=== PATIENT | female | born 1970 | race African-American/Black ===

== ENCOUNTER 2016-12-13 09:26 | Emergency (ER) | payer BC ==
[2016-12-13 10:38] LABS: Hematocrit 40 % (35-47); Hemoglobin 13.2 g/dl (12.0-16.0); Mean Corpuscular HGB Conc 33 g/dl (31-36); Mean Corpuscular Hemoglobin 28 pg (27-31); Mean Corpuscular Volume 86 fL (80-97); Mean Platelet Volume 8 um3 (7.4-10.4); Red Blood Count 4.69 10^6/ul (4.0-5.4); Red Cell Distribution Width 14 % (10.5-15); White Blood Count 6.7 10^3/ul (3.5-10.8)
[2016-12-13 11:09] LABS: ALT 15 U/L (7-52); AST 11 U/L (13-39); Albumin 3.9 g/dL (3.2-5.2); Alkaline Phosphatase 84 U/L (34-104); Anion Gap 6 mmol/L (2-11); BUN/Creatinine Ratio 14.7 (8-20); Blood Urea Nitrogen 11 mg/dL (6-24); CO2 Carbon Dioxide 29 mmol/L (22-32); Calcium 9.9 mg/dL (8.6-10.3); Chloride 100 mmol/L (101-111); Creatine Kinase 56 U/L (10-223); EGFR Non-African American 83.9 (>60); Globulin 3.2 g/dL (2-4); Glucose 117 mg/dL (70-100); Potassium 3.9 mmol/L (3.5-5.0); Sodium 135 mmol/L (133-145); Total Protein 7.1 g/dL (6.4-8.9)
[2016-12-13 12:27] LABS: Urine Bilirubin Negative (Negative); Urine Glucose Negative (Negative); Urine Nitrite Negative (Negative)
[2016-12-13 13:15] VITALS: BP 117/46
--- NOTE | 2016-12-13 17:43 | ED ---
Dizziness - HPI Summary HPI Summary: Patient arrives to ED with CC of HTN and feeling dizzy for 2-3 days. She states when she takes her BP at home, it is elevated to 200/100 and she begins to feel dizzy. She comes in today because her BP was 180/110 and she began to feel dizzy with nausea. She has had this before, but usually will go away after a few minutes, and is not related to BP. She has been worked up for BP issues before, but never has high BP readings in the office, so her PCP does not place her on a medication. Otherwise healthy and denies other problems at this time. At arrival to ED, her nausea had dissipated. Patient is also C/O insomnia which she has tried trazodone. - History Of Current Complaint Chief Complaint: EDDizziness Stated Complaint: DIZZY/HIGH BP Time Seen by Provider: 12/13/16 09:40 Hx Obtained From: Patient Onset/Duration: Resolved Timing: Minutes Severity Initially: Moderate Severity Currently: Moderate Character: Lightheaded, Dizzy Aggravating Factor(s): Headache Alleviating Factor(s): Rest Associated Signs And Symptoms: Positive: Nausea Related History: Similar Episode/Dx as - previous HTN - Risk Factors CVA Risk Factor: Negative - Allergies/Home Medications Allergies/Adverse Reactions: Allergies Allergy/AdvReac Type Severity Reaction Status Date / Time Acetaminophen [From Percocet] Allergy Severe Difficulty Verified 03/05/15 05:38 Breathing Hydrocodone [From Vicodin] Allergy Severe Difficulty Verified 03/05/15 05:52 Breathing Oxycodone [From Percocet] Allergy Severe Difficulty Verified 03/05/15 05:38 Breathing Sertraline [From Zoloft] Allergy Severe Rash Verified 05/04/13 14:52 PMH/Surg Hx/FS Hx/Imm Hx Previously Healthy: Yes Endocrine/Hematology History: Denies: Hx Diabetes Cardiovascular History: Denies: Hx Congestive Heart Failure History: Denies: Hx Renal Disease Musculoskeletal History: Denies: Hx Rheumatoid Arthritis, Hx Osteoporosis - Cancer History Hx Chemotherapy: No Hx Radiation Therapy: No - Surgical History Surgery Procedure, Year, and Place: C SECTION. KNEE SURGERY Infectious Disease History: No Infectious Disease History: Denies: Traveled Outside the [place] in Last 30 Days - Family History Known Family History: Positive: Cardiac Disease - cardiac myopathy, CT, CHF ( mother, grandmother) - Social History Occupation: Employed Full-time Lives: With Family Alcohol Use: Rare Hx Substance Use: Yes Substance Use Type: Reports: Prescribed Substance Use Comment - Amount & Last Used: Trazadone Hx Tobacco Use: No Smoking Status (MU): Never Smoked Tobacco Review of Systems Constitutional: Negative Eyes: Negative Cardiovascular: Negative Respiratory: Negative Positive: no symptoms reported, see HPI Musculoskeletal: Negative Neurological: Other - dizziness Positive: Headache, Weakness Psychological: Normal All Other Systems Reviewed And Are Negative: Yes Physical Exam Triage Information Reviewed: Yes Vital Signs On Initial Exam: Initial Vitals Temp Pulse Resp BP Pulse Ox 98.4 F 89 18 129/85 100 12/13/16 09:28 12/13/16 09:28 12/13/16 09:28 12/13/16 09:28 12/13/16 09:28 Vital Signs Reviewed: Yes Appearance: Positive: Well-Appearing, Well-Nourished Skin: Positive: Warm, Skin Color Reflects Adequate Perfusion Head/Face: Positive: Normal Head/Face Inspection Eyes: Positive: SALAZAR, Conjunctiva Clear Neck: Positive: Supple, Nontender Respiratory/Lung Sounds: Positive: Clear to Auscultation, Breath Sounds Present Cardiovascular: Positive: Normal, RRR, Pulses are Symmetrical in both Upper and Lower Extremities Musculoskeletal: Positive: Normal, Strength/ROM Intact Neurological: Positive: Normal, Sensory/Motor Intact, Alert, Oriented to Person Place, Time, Speech Normal Psychiatric: Positive: Normal AVPU Assessment: Alert - [place] Coma Scale Coma Scale Total: 15 Diagnostics - Vital Signs Vital Signs Temp Pulse Resp BP Pulse Ox 12/13/16 13:15 97.7 F 78 16 117/46 12/13/16 12:54 82 117/46 98 12/13/16 12:30 78 108/61 98 12/13/16 12:08 81 96 12/13/16 12:06 131/70 12/13/16 11:30 71 20 110/60 95 12/13/16 11:00 70 23 100/58 96 12/13/16 10:47 81 131/66 12/13/16 10:43 75 20 131/66 96 12/13/16 10:42 73 22 110/50 94 12/13/16 10:30 76 18 114/65 97 12/13/16 10:00 83 119/55 96 12/13/16 09:55 82 92 12/13/16 09:52 133/61 12/13/16 09:28 98.4 F 89 18 129/85 100 - Laboratory Lab Results: Lab Results 12/13/16 12/13/16 12/13/16 Range/Units 10:17 10:17 10:17 WBC 6.7 (3.5-10.8) 10^3/ul RBC 4.69 (4.0-5.4) 10^6/ul Hgb 13.2 (12.0-16.0) g/dl Hct 40 (35-47) % MCV 86 (80-97) fL MCH 28 (27-31) pg MCHC 33 (31-36) g/dl RDW 14 (10.5-15) % Plt Count 287 (150-450) 10^3/ul MPV 8 (7.4-10.4) um3 Neut % (Auto) 61.9 (38-83) % Lymph % (Auto) 29.4 (25-47) % [place] % (Auto) 6.5 (1-9) % Eos % (Auto) 2.0 (0-6) % Baso % (Auto) 0.2 (0-2) % Absolute Neuts (auto) 4.2 (1.5-7.7) 10^3/ul Absolute Lymphs (auto) 2.0 (1.0-4.8) 10^3/ul Absolute Monos (auto) 0.4 (0-0.8) 10^3/ul Absolute Eos (auto) 0.1 (0-0.6) 10^3/ul Absolute Basos (auto) 0 (0-0.2) 10^3/ul Absolute Nucleated RBC 0.01 10^3/ul Nucleated RBC % 0.2 INR (Anticoag Therapy) (0.89-1.11) APTT (26.0-36.3) seconds Sodium 135 (133-145) mmol/L Potassium 3.9 (3.5-5.0) mmol/L Chloride 100 L (101-111) mmol/L Carbon Dioxide 29 (22-32) mmol/L Anion Gap 6 (2-11) mmol/L BUN 11 (6-24) mg/dL Creatinine 0.75 (0.51-0.95) mg/dL Est GFR ( Amer) 108.0 (>60) Est GFR (Non-Af Amer) 83.9 (>60) BUN/Creatinine Ratio 14.7 (8-20) Glucose 117 H (70-100) mg/dL Lactic Acid 1.0 (0.5-2.0) mmol/L Calcium 9.9 (8.6-10.3) mg/dL Total Bilirubin 0.20 (0.2-1.0) mg/dL AST 11 L (13-39) U/L ALT 15 (7-52) U/L Alkaline Phosphatase 84 (34-104) U/L Total Creatine Kinase 56 (10-223) U/L Troponin I 0.00 (<0.04) ng/mL B-Natriuretic Peptide ( - 100) pg/mL Total Protein 7.1 (6.4-8.9) g/dL Albumin 3.9 (3.2-5.2) g/dL Globulin 3.2 (2-4) g/dL Albumin/Globulin Ratio 1.2 (1-3) TSH 1.90 (0.34-5.60) mcIU/mL Beta HCG, Quant < 0.60 mIU/mL Urine Color Urine Appearance Urine pH (5-9) Ur Specific [place] (1.010-1.030) Urine Protein (Negative) Urine Ketones (Negative) Urine Blood (Negative) Urine Nitrate (Negative) Urine Bilirubin (Negative) Urine Urobilinogen (Negative) Ur Leukocyte Esterase (Negative) Urine Glucose (Negative) 12/13/16 12/13/16 12/13/16 Range/Units 10:17 10:17 12:06 WBC (3.5-10.8) 10^3/ul RBC (4.0-5.4) 10^6/ul Hgb (12.0-16.0) g/dl Hct (35-47) % MCV (80-97) fL MCH (27-31) pg MCHC (31-36) g/dl RDW (10.5-15) % Plt Count (150-450) 10^3/ul MPV (7.4-10.4) um3 Neut % (Auto) (38-83) % Lymph % (Auto) (25-47) % [place] % (Auto) (1-9) % Eos % (Auto) (0-6) % Baso % (Auto) (0-2) % Absolute Neuts (auto) (1.5-7.7) 10^3/ul Absolute Lymphs (auto) (1.0-4.8) 10^3/ul Absolute Monos (auto) (0-0.8) 10^3/ul Absolute Eos (auto) (0-0.6) 10^3/ul Absolute Basos (auto) (0-0.2) 10^3/ul Absolute Nucleated RBC 10^3/ul Nucleated RBC % INR (Anticoag Therapy) 0.95 (0.89-1.11) APTT 34.1 (26.0-36.3) seconds Sodium (133-145) mmol/L Potassium (3.5-5.0) mmol/L Chloride (101-111) mmol/L Carbon Dioxide (22-32) mmol/L Anion Gap (2-11) mmol/L BUN (6-24) mg/dL Creatinine (0.51-0.95) mg/dL Est GFR ( Amer) (>60) Est GFR (Non-Af Amer) (>60) BUN/Creatinine Ratio (8-20) Glucose (70-100) mg/dL Lactic Acid (0.5-2.0) mmol/L Calcium (8.6-10.3) mg/dL Total Bilirubin (0.2-1.0) mg/dL AST (13-39) U/L ALT (7-52) U/L Alkaline Phosphatase (34-104) U/L Total Creatine Kinase (10-223) U/L Troponin I (<0.04) ng/mL B-Natriuretic Peptide 20 ( - 100) pg/mL Total Protein (6.4-8.9) g/dL Albumin (3.2-5.2) g/dL Globulin (2-4) g/dL Albumin/Globulin Ratio (1-3) TSH (0.34-5.60) mcIU/mL Beta HCG, Quant mIU/mL Urine Color Yellow Urine Appearance Clear Urine pH 5.0 (5-9) Ur Specific [place] 1.016 (1.010-1.030) Urine Protein Negative (Negative) Urine Ketones Negative (Negative) Urine Blood Negative (Negative) Urine Nitrate Negative (Negative) Urine Bilirubin Negative (Negative) Urine Urobilinogen Negative (Negative) Ur Leukocyte Esterase Negative (Negative) Urine Glucose Negative (Negative) Result Diagrams: 12/13/16 10:17 12/13/16 10:17 Lab Statement: Any lab studies that have been ordered have been reviewed, and results considered in the medical decision making process. Dizzy Course/Dx - Course Course Of Treatment: BP on arrival 136/82 and retook at 121/68. Labs WNL, UA WNL. Patients symptoms dissipated on arrival. Encouraged patient to seek cardiology follow up d/t high BP and check BP cuff for different size. Encouraged follow up with PCP as well. - Diagnoses Differential Diagnosis/HQI/PQRI: Coronary Artery Disease, CVA, Other Provider Diagnoses: Dizziness, Hypertension Discharge - Discharge Plan Condition: Stable Disposition: HOME Prescriptions: Meclizine TAB* [Antivert 12.5 TAB*] 25 mg PO TID #20 tab MDD 3 Ondansetron ODT TAB* [Zofran 4 MG Odt TAB*] 4 mg PO Q6H PRN #20 tab.odt MDD 4 PRN Reason: Nausea Patient Education Materials: Hypertension (ED), Dizziness (ED) Referrals: Shekhar Stearns MD [Medical Doctor] - Dennis Malagon MD [Primary Care Provider] - Additional Instructions: Follow up with PCP and cardiology. Call today for appt. Will not start your on any medication for today. If you develop these symptoms again or have any visual changes, please check your blood pressure and return if BP is elevated 200/100. Please seen ophthalmology as well.
== END 2016-12-13 13:15 | disposition home or self-care (01) ==
LOC: ED 09:26
DX: I10 Essential (primary) hypertension (principal); R51 Headache; R42 Dizziness and giddiness
CPT/HCPCS: 36415; 80053; 81003; 82550; 83605; 83880; 84443; 84484; 84702; 85025; 85610; 85730; 96372; 99282

== ENCOUNTER 2018-05-02 15:40 | Observation (INO) | payer BC ==
[2018-05-02] MEDS ORDERED: Aspirin 81 mg CHEW TAB* 81 MG TAB.CHEW PO ONE (16:26)
[2018-05-02] MEDS ORDERED: Nitroglycerin TAB 0.4 MG* 0.4 MG TAB SL ONE (16:26)
--- NOTE | 2018-05-02 16:33 | ED ---
HPI Chest Pain - HPI Summary HPI Summary: This is Ara nguyen, documenting for attending Corey San MD. 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 Prior to onset of chest pain she felt lightheaded nauseous, diaphoretic, OGDEN, and had a headache. States chest pain is currently improved, but still feels like pressure. Report recent ankle swelling. Denies chest pain with deep breath, cough, and fever. Denies oral contraceptive use. Reports long car trip roughly two weeks ago. FMHx significant for CHF in her mother dx at age 45 with from [place] at age 58; her grandmother had cardiomyopathy at age 56. I, Dr. San personally performed the services described in this documentation as scribed in my presence and it is both accurate and complete. - History of Current Complaint Chief Complaint: EDChestPainROMI Time Seen by Provider: 05/02/18 16:14 Hx Obtained From: Patient Hx Last Menstrual Period: 04/12/13 Onset/Duration: Started Hours Ago Initial Severity: Moderate Current Severity: Mild Pain Intensity: 4 Pain Scale Used: 0-10 Numeric Chest Pain Location: Left Anterior Chest Pain Radiates: Yes Chest Pain Radiates To:: Back Character: Pressure/Squeezing Aggravating Factor(s): Nothing Alleviating Factor(s): Nothing Associated Signs and Symptoms: Positive: Chest Pain, Headaches, Shortness of Breath, Swelling, Diaphoresis, Nausea - Allergy/Home Medications Allergies/Adverse Reactions: Allergies Allergy/AdvReac Type Severity Reaction Status Date / Time acetaminophen [From Percocet] Allergy Severe Difficulty Verified 05/02/18 15:56 Breathing hydrocodone [From Vicodin] Allergy Severe Difficulty Verified 05/02/18 15:56 Breathing oxycodone [From Percocet] Allergy Severe Difficulty Verified 05/02/18 15:56 Breathing sertraline Allergy Severe Rash Verified 05/02/18 15:56 Home Medications: Home Medications Fluticasone NASAL SPRAY 50MCG* [Flonase NASAL SPRAY 50MCG*] 2 spray BOTH NARES DAILY 05/02/18 [History Confirmed 05/02/18] Multivitamins/Minerals TAB* [Theragran/minerals TAB*] 1 tab PO DAILY 05/02/18 [ History Confirmed 05/02/18] PMH/Surg Hx/FS Hx/Imm Hx Endocrine/Hematology History: Denies: Hx Diabetes Cardiovascular History: Denies: Hx Congestive Heart Failure History: Denies: Hx Renal Disease Musculoskeletal History: Denies: Hx Rheumatoid Arthritis, Hx Osteoporosis - Cancer History Hx Chemotherapy: No Hx Radiation Therapy: No - Surgical History Surgery Procedure, Year, and Place: C SECTION. KNEE SURGERY Infectious Disease History: No Infectious Disease History: Denies: Traveled Outside the [place] in Last 30 Days - Family History Known Family History: Positive: Cardiac Disease - cardiac myopathy, [place], CHF ( mother, grandmother) - Social History Alcohol Use: Rare Alcohol Amount: 1 month Hx Substance Use: Yes Substance Use Type: Reports: None Substance Use Comment - Amount & Last Used: Trazadone Hx Tobacco Use: No Smoking Status (MU): Never Smoked Tobacco Have You Smoked in the Last Year: No Review of Systems Positive: Skin Diaphoresis, Other - lightheaded. Negative: Fever, Chills Negative: Erythema Negative: Sore Throat Positive: Chest Pain Positive: Shortness Of Breath - OGDEN. Negative: Cough Positive: Nausea. Negative: Abdominal Pain, Vomiting, Diarrhea Negative: dysuria, hematuria Positive: Myalgia - back pain, Edema Positive: Headache All Other Systems Reviewed And Are Negative: Yes Physical Exam - Summary Physical Exam Summary: Constitutional: Well-developed, Morbidly Obese, Alert. (-) Distressed Skin: Warm, Dry HENT: Normocephalic; Atraumatic Eyes: Conjunctiva normal Neck: Musculoskeletal ROM normal neck. (-) JVD, (-) Stridor, (-) Tracheal deviation Cardio: Rhythm regular, rate normal, Heart sounds normal; Intact distal pulses; The pedal pulses are 2+ and symmetric. Radial pulses are 2+ and symmetric. (-) Murmur Pulmonary/Chest wall: Effort normal. (-) Respiratory distress, (-) Wheezes, (-) Rales Abd: Soft, (-) epigastric tenderness, (-) Distension, (-) Guarding, (-) Rebound Musculoskeletal: (-) Edema Lymph: (-) Cervical adenopathy Neuro: Alert, Oriented x3 Psych: Mood and affect Normal Triage Information Reviewed: Yes Vital Signs On Initial Exam: Initial Vitals Temp Pulse Resp BP Pulse Ox 97.2 F 81 20 136/54 97 05/02/18 15:51 05/02/18 15:51 05/02/18 15:51 05/02/18 15:51 05/02/18 15:51 Vital Signs Reviewed: Yes Diagnostics - Vital Signs Vital Signs Temp Pulse Resp BP Pulse Ox 05/02/18 15:51 97.2 F 81 20 136/54 97 - Laboratory Result Diagrams: 05/02/18 16:38 05/02/18 16:38 Lab Statement: Any lab studies that have been ordered have been reviewed, and results considered in the medical decision making process. - Radiology CXR Radiology Interpretation Completed By: Radiologist - Limited exam due to morbid obesity without compelling evidence for an acute cardiopulmonary process. ED Physician has reviewed this report. - CT Chest/Thorax CT Interpretation Completed By: Radiologist - #. Negative for pulmonary embolism. #. Unremarkable thoracic aorta. #. Incidental solitary significantly enlarged LEFT axillary lymph node without significant change compared with the 2015 exam. Negative for additional thoracic lymphadenopathy. ED Physician has reviewed this report. 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 Prior to onset of chest pain she felt lightheaded nauseous, diaphoretic, OGDEN, and had a headache. States chest pain is currently improved, but still feels like pressure. Report recent ankle swelling. Denies chest pain with deep breath, cough, and fever. Denies oral contraceptive use. Reports long car trip roughly two weeks ago. FMHx significant for CHF in her mother dx at age 45 with from [place] at age 58; her grandmother had cardiomyopathy at age 56. Patient is given Nitroglycerin and ASA. CXR is limited due to morbid obesity, without significant cardiopumoary findings. A chest/thorax CT reveals:#. Negative for pulmonary embolism. #. Unremarkable thoracic aorta. #. Incidental solitary significantly enlarged LEFT axillary lymph node without significant. change compared with the 2015 exam. Negative for additional thoracic lymphadenopathy. Bloodwork is unremarkable. Patient will be admitted and is agreeable with this plan. - Diagnoses Provider Diagnoses: Chest pain, unspecified - Provider Notifications Discussed Care Of Patient With: Sheri Chaidez - hospitalist Instructed by Provider To: Admit As Inpatient Discharge - Sign-Out/Discharge Documenting (check all that apply): Patient Departure - Discharge Plan Disposition: ADMITTED TO [facility]
--- NOTE | 2018-05-02 16:43 | RAD ---
Indication: Chest pain. Back pain. Nausea. Comparison: April 25, 2016 Technique: Upright AP 1617 hours Report: Morbid obesity limits image quality. No gross pulmonary infiltrate, focal pulmonary lesion, pleural effusion, or pneumothorax evident. The heart, pulmonary vasculature, and mediastinal contours are unremarkable. No free air evident beneath the diaphragm. IMPRESSION: #. Limited exam due to morbid obesity without compelling evidence for an acute cardiopulmonary process.
[2018-05-02 16:50] LABS: ABS Basophils 0 10^3/ul (0-0.2); ABS Eosinophils 0.1 10^3/ul (0-0.6); ABS Lymphocytes 1.9 10^3/ul (1.0-4.8); ABS Monocytes 0.7 10^3/ul (0-0.8); ABS Neutrophils 6.5 10^3/ul (1.5-7.7); ABS Nucleated RBC 0 10^3/ul; Eosinophil % 1.1 % (0-6); Hematocrit 39 % (35-47); Hemoglobin 13.1 g/dl (12.0-16.0); Lymphocyte % 20.7 % (25-47); Mean Corpuscular HGB Conc 33 g/dl (31-36); Mean Corpuscular Hemoglobin 28 pg (27-31); Mean Corpuscular Volume 85 fL (80-97); Mean Platelet Volume 7.6 um3 (7.4-10.4); Nucleated Red Blood Cells % 0.1; Platelet Count 345 10^3/ul (150-450); Red Blood Count 4.64 10^6/ul (4.00-5.40); Red Cell Distribution Width 14 % (10.5-15); White Blood Count 9.2 10^3/ul (3.5-10.8)
[2018-05-02 17:09] LABS: EGFR Non-African American 81.1 (>60)
[2018-05-02] MEDS ORDERED: Iohexol 350* (CONTRAST) 500 ML MDV IV ONE (17:12)
[2018-05-02] MEDS ORDERED: Nitroglycerin 2% OINT* 1 GM PAK TOPICAL ONE (17:43)
--- NOTE | 2018-05-02 18:21 | RAD ---
INDICATION: Chest pain radiating into the back. Assess for pulmonary embolism. COMPARISON: Chest radiograph of the same date and March 05, 2015 CT. TECHNIQUE: Multidetector CT images were obtained from the lung apices to the upper abdomen with 88 mL Omnipaque 350 IV contrast. Pulmonary angiogram protocol. Multiplanar reformation including with maximum intensity projection. REPORT: Clear lungs. Negative for pleural effusion or pneumothorax. 2.1 cm short axis enlarged LEFT axillary lymph node without significant change compared with the 2015 exam. No additional enlarged thoracic lymph nodes evident. Negative for cardiomegaly, pericardial effusion. Normal diameter thoracic aorta. No evidence for aortic dissection. No filling defects are identified from the main to the subsegmental pulmonary arteries to indicate presence of a pulmonary embolism. Unremarkable images through the upper abdomen. Negative for splenomegaly. No lymphadenopathy evident at the visualized upper abdomen. IMPRESSION: #. Negative for pulmonary embolism. #. Unremarkable thoracic aorta. #. Incidental solitary significantly enlarged LEFT axillary lymph node without significant change compared with the 2015 exam. Negative for additional thoracic lymphadenopathy.
[2018-05-02] MEDS ORDERED: Ondansetron INJ* 2 MG/ML VIAL IV PRN (18:27)
[2018-05-02] MEDS ORDERED: Acetaminophen TAB* 325 MG PO PRN (18:27)
[2018-05-02] MEDS ORDERED: Cyclobenzaprine TAB* 10 MG PO PRN (18:30)
[2018-05-02] MEDS ORDERED: traZODone TAB* 100 MG PO PRN (18:30)
--- NOTE | 2018-05-02 21:44 | HP ---
CC: Dr. Malagon * HISTORY AND PHYSICAL: DATE OF ADMISSION: 05/02/18 PRIMARY CARE PROVIDER: Dr. Malagon. ATTENDING PHYSICIAN WHILE IN THE HOSPITAL: Sheri Chaidez DO * (report dictated by Pritesh Funk NP). CHIEF COMPLAINT: 1. Chest pain. 2. Lightheadedness. 3. Not feeling well. HISTORY OF PRESENT ILLNESS: Mrs. Barnes is a 47-year-old female patient who is morbidly obese; she has a history of rheumatoid arthritis; chronic pain; migraines; history of anxiety and depression; NIKIA, she is getting fitted for a mask; overactive bladder; and hypertension, although currently not on medication ; also history of palpitations in the past, she saw it systems manager about 15 years ago. She is coming into the ED today. She says that throughout the afternoon today, she just is not feeling well. She got home this morning from work, she works overnight. She tried lying down. She was feeling lightheaded and dizzy, feeling nauseous. She was able to lay down and then she got up to go get her son. Again when she got back from shopping and picking up her son, she felt nauseous, lightheaded, so a little just tired, felt like she was going to faint. She tried eating something, she got nauseous and vomited. She then started noting that she was having some pressure tightness in the left chest that went into her shoulder down her arm a little ways. She became short of breath. She just was feeling nauseated with this. She felt like she got sweaty. She says the pain was nonexertional. She has not experienced pain like this before. She denied any recent fevers, chills, nausea, vomiting. No recent trips or travel. No calf pain or leg pain or swelling. She said the pain was not reproducible, it was not sharp in nature, it was just a pressure. She called 911 to come into the hospital to be evaluated because she has a pretty extensive family history of heart disease. She came into the ED. She was evaluated for the chest pain. Because of this, we were asked to evaluate for admission. PAST MEDICAL HISTORY: Significant for: 1. GERD. 2. Migraines. 3. Depression. 4. Anxiety. 5. Chronic pain. 6. Rheumatoid arthritis. 7. NIKIA. 8. Overactive bladder. 9. Hypertension. PAST SURGICAL HISTORY: 1. The patient has had knee arthroscopy. 2. . MEDICATIONS: Home medications include: 1. Trazodone 100 mg at bedtime as needed. 2. Prevacid 30 mg p.o. daily. 3. Plaquenil 200 mg p.o. b.i.d. 4. VESIcare 10 mg p.o. daily. 5. Imitrex 100 mg p.o. b.i.d. as needed. 6. Naproxen 500 mg p.o. b.i.d. as needed. 7. Multivitamin 1 tablet p.o. daily. 8. Lopressor 25 mg p.o. t.i.d. as needed. 9. Claritin 10 mg p.o. daily. 10. Flonase 2 sprays both nares daily. 11. Prozac 20 mg daily. 12. Flexeril 10 mg p.o. b.i.d. as needed. ALLERGIES TO MEDICATIONS: Include NORCO, PERCOCET, and ZOLOFT. FAMILY HISTORY: Her mother had a history of SD at the age of 56, CHF at the age of 45. Father of aspiration. Her maternal grandmother had cardiomyopathy. SOCIAL HISTORY: She does not smoke, does not drink. Surrogate decision maker is her . REVIEW OF SYSTEMS: There is no documented fever. She denies having any significant weight change. There was no double vision. She denies having any ear discharge. There was no rhinorrhea. There was no sore throat. No thyroid enlargement. No orthopnea. There was chest pain per my HPI. There was no nocturnal dyspnea. No abdominal pain, no nausea, no vomiting. No dysuria, no frequency. No seizure, no loss of consciousness. No pruritus and no skin ulcerations. Review of 14 systems completed, all others negative. PHYSICAL EXAMINATION GENERAL: At this time, Mrs. Barnes is a 47-year-old female patient; she is morbidly obese. She is sitting in the ED stretcher. She does not appear to be in any acute distress. VITAL SIGNS: Blood pressure 136/54 with a pulse of 81, respirations 20, O2 sat 97%, temperature 97.2. HEENT: Head is atraumatic and normocephalic. Eyes: EOMs are intact. Sclerae are anicteric and not pale. Throat: Oral mucosa appears to be moist. No oropharyngeal erythema. NECK: Supple. LUNGS: Clear to auscultation bilaterally. No wheezes, rales, or rhonchi. HEART: Sounds S1, S2. Regular rate and rhythm. No murmurs, rubs, or gallops. ABDOMEN: Soft, flat, nontender. Bowel sounds were present. EXTREMITIES: Pulses were 2+ throughout. She had no peripheral edema. She had 5/5 strength. NEUROLOGICAL: She is awake. She is alert. She is oriented x3. Her tongue is midline. Compensation Programs Manager were equal. She had no gross focal neurological deficits. SKIN: Grossly intact. DIAGNOSTIC STUDIES/LAB DATA: Labs today are revealing a WBC of 9.2, RBC of 4.64, hemoglobin 13.1, hematocrit of 39, and platelet count of 345. Sodium was 136, potassium of 4.7, chloride of 104, bicarb 28, BUN 11, creatinine of 0.77, glucose 89, lactate 0.9, calcium 9.3. Total bili 0.3, AST 16, ALT 19, alk phos 90. Troponin 0. Albumin of 4.0. She did have a chest thorax CTA, which revealed negative for pulmonary embolism , unremarkable thoracic aorta. Incidental solitary significantly enlarged left axillary lymph node without significant change compared to 2015 exam, negative for additional thoracic lymphadenopathy. Chest x-ray obtained today showed limited exam due to morbid obesity without compelling evidence for acute cardiopulmonary process. EKG obtained today shows normal sinus rhythm, rate of 78, no ST elevations or T - wave inversions. It was reviewed with her previous EKG, it appears to be similar. Old medical records were reviewed. ASSESSMENT AND PLAN: Mrs. Barnes is a 47-year-old female patient coming into the emergency department today with complaints of chest pain. We were asked to evaluate for admission. She will be admitted under observation status for: 1. Chest pain. At this point, the patient does have risk factors since she has morbid obesity, untreated hypertension, and in addition to this, also has a family history. I will go ahead and cycle her troponin, check lipid panel, A1c , EKG in the morning, place her on telemetry and check a stress test in the morning. She may need a 2-day protocol. 2. Gastroesophageal reflux disease. Continue her Prevacid. 3. Migraines. Continue current medical regimen. P.r.n. Tylenol has been ordered. 4. Depression and anxiety. Continue supportive care. 5. Rheumatoid arthritis. Continue with her Plaquenil. 6. Chronic pain. Continue meds as described. 7. Obstructive sleep apnea. She can follow up with her PCP. 8. Overactive bladder. Continue her Detrol. 9. History of hypertension. She says her blood pressure has been high, but she has not been on medications. We will trend this while she is here and may consider starting an agent, but she can follow up with primary care physician. 10. Left axillary lymph node. Follow up with primary care physician. She may need to have a biopsy at some point, but she has had it for 3 years, this can be followed outpatient. 11. DVT prophylaxis. Continue with heparin subcu. 12. Code status. Full code. 13. Fluid, electrolytes, and nutrition. Heart-healthy diet. She will be n.p.o. after midnight. TIME SPENT: On the admission 60 minutes, greater than half the time was spent face- to-face with the patient obtaining my history and physical; other half time was spent going over the plan of care with the patient and implementing plan of care. I did discuss the plan of care with my attending, Dr. Chaidez, she is in agreement. PRITESH FUNK NP [id number]/[facility] #: [id number] LISA
[2018-05-02] MEDS: Heparin VIAL(*) 5000 UNITS/ML VIAL (FIVE THOUSAND) SUBCUT SCH (22:07)
[2018-05-02] MEDS: Hydroxychloroquine TAB* 200 MG PO SCH (22:08)
[2018-05-03] MEDS: Heparin VIAL(*) 5000 UNITS/ML VIAL (FIVE THOUSAND) SUBCUT SCH ×3 (05:35→21:25)
[2018-05-03 05:56] LABS: ABS Basophils 0 10^3/ul (0-0.2); ABS Eosinophils 0.2 10^3/ul (0-0.6); ABS Lymphocytes 1.5 10^3/ul (1.0-4.8); ABS Monocytes 0.5 10^3/ul (0-0.8); ABS Neutrophils 3.8 10^3/ul (1.5-7.7); ABS Nucleated RBC 0 10^3/ul; Eosinophil % 2.8 % (0-6); Hematocrit 36 % (35-47); Hemoglobin 12.2 g/dl (12.0-16.0); Lymphocyte % 25.3 % (25-47); Mean Corpuscular HGB Conc 33 g/dl (31-36); Mean Corpuscular Hemoglobin 28 pg (27-31); Mean Corpuscular Volume 84 fL (80-97); Mean Platelet Volume 7.6 um3 (7.4-10.4); Nucleated Red Blood Cells % 0.2; Platelet Count 301 10^3/ul (150-450); Red Blood Count 4.33 10^6/ul (4.00-5.40); Red Cell Distribution Width 15 % (10.5-15)
[2018-05-03 06:12] LABS: EGFR Non-African American 82.3 (>60)
[2018-05-03] MEDS: SOLIFENACIN 10 MG PO SCH (08:09)
[2018-05-03] MEDS: FLUoxetine CAP* 10 MG PO SCH (08:09)
[2018-05-03] MEDS: Multivitamins/Minerals TAB PO SCH (08:09)
[2018-05-03] MEDS: Omeprazole CAP* 20 MG PO SCH (08:09)
[2018-05-03] MEDS: Cetirizine* 10 MG TAB PO SCH (08:09)
[2018-05-03] MEDS: Aspirin 81 mg CHEW TAB* 81 MG TAB.CHEW PO SCH (08:09)
[2018-05-03] MEDS: Hydroxychloroquine TAB* 200 MG PO SCH ×2 (08:09→21:25)
--- NOTE | 2018-05-03 14:11 | PN ---
Subjective Date of Service: 05/03/18 Interval History: Patient reports no further CP since admission. She reports the stress test went well and she did not have any CP during exam. She states she feels that she is at her baseline. Offers no complaints at this time. 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 Objective Active Medications: Acetaminophen (Tylenol Tab*) 650 mg PO Q4H PRN PRN Reason: FEVER/PAIN Aspirin (Aspirin 81 Mg Chew Tab*) 81 mg PO DAILY [facility] Last Admin: 05/03/18 08:09 Dose: 81 mg Cetirizine HCl (Zyrtec*) 10 mg PO DAILY [facility] Last Admin: 05/03/18 08:09 Dose: 10 mg Cyclobenzaprine HCl (Flexeril Tab*) 10 mg PO BEDTIME PRN PRN Reason: SPASMS - MUSCLE Fluoxetine HCl (Prozac Cap*) 20 mg PO DAILY [facility] Last Admin: 05/03/18 08:09 Dose: 20 mg Heparin Sodium (Porcine) (Heparin Vial(*)) 5,000 units SUBCUT Q8HR [facility] Last Admin: 05/03/18 05:35 Dose: 5,000 units Hydroxychloroquine Sulfate (Plaquenil Tab*) 200 mg PO BID [facility] Last Admin: 05/03/18 08:09 Dose: 200 mg Multivitamins/Minerals (Theragran/Minerals Tab*) 1 tab PO DAILY [facility] Last Admin: 05/03/18 08:09 Dose: 1 tab Omeprazole (Prilosec Cap*) 20 mg PO DAILY@0730 [facility] Last Admin: 05/03/18 08:09 Dose: 20 mg Ondansetron HCl (Zofran Inj*) 4 mg IV Q6H PRN PRN Reason: NAUSEA Solifenacin (Vesicare(Nf)) 10 mg PO DAILY [facility] Last Admin: 05/03/18 08:09 Dose: Not Given Trazodone HCl (Desyrel Tab*) 100 mg PO BEDTIME PRN PRN Reason: INSOMNIA Last Admin: 05/02/18 22:08 Dose: 100 mg Vital Signs - 8 hr 05/03/18 07:35 Temperature 98.7 F Pulse Rate 86 Respiratory 20 Rate Blood Pressure 121/51 (mmHg) O2 Sat by Pulse 97 Oximetry Oxygen Devices in Use Now: None Appearance: A+O x3 47 yo obese female very pleasent in NAD Eyes: No Scleral Icterus, PERRLA Ears/Nose/Mouth/Throat: NL Teeth, Lips, Gums, Mucous Membranes Moist Respiratory: Symmetrical Chest Expansion and Respiratory Effort, Clear to Auscultation Cardiovascular: NL Sounds; No Murmurs; No JVD, RRR, No Edema Abdominal: NL Sounds; No Tenderness; No Distention Extremities: No Edema, No Clubbing, Cyanosis Skin: No Rash or Ulcers, No Nodules or Sclerosis Neurological: NL Sensation, NL Gait, NL Muscle Strength and Tone Lines/Tubes/Other Access: Clean, Dry and Intact Peripheral IV Nutrition: Taking PO's Result Diagrams: 05/03/18 05:37 05/03/18 05:37 Assess/Plan/Problems-Billing Assessment: 47 yo female with a PMH morbidly obesity, RA, chronic, migraines, hx of anxiety and depression, NIKIA, overactive bladder, HTN who presented with chest pain, lightheadedness admitted for chest pain - Patient Problems (1) Chest pain Comment: No further CP 3 flat troponins awaiting 2nd part of stress stest tomorrow. continue ASA 81 mg daily (2) Morbid obesity Comment: BMI 51 Lifestyle counseling 15 minutes (3) Depression Comment: continue prozac (4) Rheumatoid arthritis Comment: continue Plaquenil (5) NIKIA (obstructive sleep apnea) Comment: CPAP (6) Chronic pain Comment: APA, flexeril (7) DVT prophylaxis Comment: HSQ
[2018-05-04] MEDS: Heparin VIAL(*) 5000 UNITS/ML VIAL (FIVE THOUSAND) SUBCUT SCH (05:47)
[2018-05-04] MEDS: Multivitamins/Minerals TAB PO SCH (09:30)
[2018-05-04] MEDS: Hydroxychloroquine TAB* 200 MG PO SCH (09:30)
[2018-05-04] MEDS: Aspirin 81 mg CHEW TAB* 81 MG TAB.CHEW PO SCH (09:30)
[2018-05-04] MEDS: Cetirizine* 10 MG TAB PO SCH (09:30)
[2018-05-04] MEDS: FLUoxetine CAP* 10 MG PO SCH (09:30)
[2018-05-04] MEDS: Omeprazole CAP* 20 MG PO SCH (09:30)
[2018-05-04] MEDS: SOLIFENACIN 10 MG PO SCH (09:33)
--- NOTE | 2018-05-04 10:23 | RAD ---
Edited for charges. Indication: Chest pain. Myocardial perfusion scan was performed utilizing two-day protocol. Rest myocardial perfusion was performed after intravenous injection of 25.8 mCi of technetium 99m tetrofosmin. Treadmill stress study was performed and 25.4 mCi of technetium 99m tetrofosmin was injected for the stress portion of the study. Maximum heart rate achieved was 94% of the maximum predicted value. Comparison is made with previous exam dated October 05, 2009. The attenuated corrected images demonstrates a small area of photopenia in the anterior wall which appears to reverse on the rest images. A small area of reversible change is not excluded. Please note the patient does have large pendulous breasts. The remainder of the left ventricle is otherwise unremarkable. The ejection fraction at stress is 61% and at rest is 52%. Evaluation of wall motion demonstrates no focal wall motion abnormality. IMPRESSION: A small area of reversible change is noted in the anterior wall. This persists on the attenuated corrected images. Although the patient has large pendulous breasts there is likely a small area of reversible change in the anterior wall. ASSESSMENT: Intermediate risk Based on imaging criteria from ACC/AHA 2002 Guideline Update for the Management of Patients With Chronic Stable Angina Table 23. Noninvasive Risk Stratification. MTDD
--- NOTE | 2018-05-04 11:02 | PN ---
Subjective Date of Service: 05/04/18 Interval History: Pt reports she feels good today, no further CP. We discussed abnormal stress test, Dr. Stearns recommends medical management and patient agrees at this time. Reviewed new medications and side effects. Objective Active Medications: Acetaminophen (Tylenol Tab*) 650 mg PO Q4H PRN PRN Reason: FEVER/PAIN Aspirin (Aspirin 81 Mg Chew Tab*) 81 mg PO DAILY [facility] Last Admin: 05/04/18 09:30 Dose: 81 mg Cetirizine HCl (Zyrtec*) 10 mg PO DAILY [facility] Last Admin: 05/04/18 09:30 Dose: 10 mg Cyclobenzaprine HCl (Flexeril Tab*) 10 mg PO BEDTIME PRN PRN Reason: SPASMS - MUSCLE Fluoxetine HCl (Prozac Cap*) 20 mg PO DAILY [facility] Last Admin: 05/04/18 09:30 Dose: 20 mg Heparin Sodium (Porcine) (Heparin Vial(*)) 5,000 units SUBCUT Q8HR [facility] Last Admin: 05/04/18 05:47 Dose: 5,000 units Hydroxychloroquine Sulfate (Plaquenil Tab*) 200 mg PO BID [facility] Last Admin: 05/04/18 09:30 Dose: 200 mg Multivitamins/Minerals (Theragran/Minerals Tab*) 1 tab PO DAILY [facility] Last Admin: 05/04/18 09:30 Dose: 1 tab Omeprazole (Prilosec Cap*) 20 mg PO DAILY@0730 [facility] Last Admin: 05/04/18 09:30 Dose: 20 mg Ondansetron HCl (Zofran Inj*) 4 mg IV Q6H PRN PRN Reason: NAUSEA Solifenacin (Vesicare(Nf)) 10 mg PO DAILY [facility] Last Admin: 05/04/18 09:33 Dose: Not Given Trazodone HCl (Desyrel Tab*) 100 mg PO BEDTIME PRN PRN Reason: INSOMNIA Last Admin: 05/02/18 22:08 Dose: 100 mg Vital Signs - 8 hr 05/04/18 05/04/18 03:24 08:36 Temperature 98.4 F 98.5 F Pulse Rate 85 86 Respiratory 16 20 Rate Blood Pressure 130/55 123/67 (mmHg) O2 Sat by Pulse 98 98 Oximetry Oxygen Devices in Use Now: None Result Diagrams: 05/03/18 05:37 05/03/18 05:37 Assess/Plan/Problems-Billing Assessment: 47 yo female with a PMH morbidly obesity, RA, chronic, migraines, hx of anxiety and depression, NIKIA, overactive bladder, HTN who presented with chest pain, lightheadedness admitted for chest pain. She is interested in lifestyle changes and CCHL. - Patient Problems (1) Chest pain Comment: No further CP 3 flat troponins Nuclear portion intermediate risk - dicussed with Dr. stearns who performed the exercise portion and states she did well and was a normal exam. He recommends medical management with ASA, statin, BB and nitro prn. If she continues to have CP he recommends a cardiac catherization. Pt agrees with plan continue ASA 81 mg daily (2) Morbid obesity Comment: BMI 51 Lifestyle counseling 15 minutes (3) Depression Comment: continue prozac (4) Rheumatoid arthritis Comment: continue Plaquenil (5) NIKIA (obstructive sleep apnea) Comment: CPAP (6) Chronic pain Comment: APA, flexeril (7) DVT prophylaxis Comment: HSQ Status and Disposition: DC to home
[2018-05-04] MEDS ORDERED: Metoprolol Tartrate TAB* 25 MG PO ONE (11:16)
[2018-05-04 12:23] VITALS: BP 134/50
--- NOTE | 2018-05-04 12:37 | DS ---
CC: Dr. Malagon* DATE OF ADMISSION: 05/02/2018. DATE OF DISCHARGE: 05/04/2018. PROVIDER: Kimberly Kwok NP. ATTENDING PHYSICIAN: Dr. Walters* (report dictated by Kimberly Kwok NP). PRIMARY CARE PROVIDER: Dr. Malagon. NEWSPAPER COPY EDITOR: Dr. Stearns. DISCHARGE DIAGNOSIS: Chest pain. SECONDARY DIAGNOSES: Obesity, rheumatoid arthritis, chronic pain, obstructive sleep apnea, overactive bladder, anxiety, depression, migraines, GERD. HISTORY OF PRESENT ILLNESS AND HOSPITAL COURSE: Please see history and physical by Pritesh Funk NP for full admission details. In summary, this is a 47-year-old female who presented to the emergency department on 05/02/2018 with complaint of chest pain, lightheadedness, and not feeling well. She was admitted to the Hospitalist Service for acute coronary syndrome work-up which was negative. She had three flat troponins. She underwent a cardiac nuclear stress test over two days in which the exercise portion with Dr. Stearns was normal; however, the cardiac nuclear medicine test did place her at intermediate risk with the impression of "a small area of reversible change is noted in the anterior wall; this persists on the attenuated corrected images; although the patient has large pendulous breasts, there is likely a small area of reversible change in the anterior wall." This result was discussed with cap coverer Dr. Stearns who, again as stated above, performed her exercise stress test which was normal. He thinks most likely this is not correct; however, due to her family history and her comorbidity, she is at high risk for coronary artery disease and recommends that she go on medical management at this time with an aspirin, statin, beta yudi, and prn nitroglycerin. The patient has not had any further chest pain throughout her hospitalization. I discussed the plan of care at discharge and the patient agrees with medical management. As well we discussed lifestyle changes and the importance of losing weight, a healthy diet, and exercise. She also agrees with a referral to [facility] for [facility] support. The patient was instructed to return to the emergency department with any concerning or worsening symptoms. She is to follow-up with Dr. Stearns as an outpatient or cap coverer of her choice as she is from [place] and could follow -up with Dr. Howard if she chooses to do so. She was instructed to follow- up with her primary care provider within five to seven days. DISCHARGE MEDICATIONS: 1. Trazodone 100 mg p.o. at bedtime prn. 2. Prevacid 30 mg p.o. daily. 3. Plaquenil 200 mg p.o. b.i.d. 4. Vesicare 10 mg p.o. daily. 5. Imitrex 100 mg p.o. b.i.d. prn. 6. Naproxen 500 mg p.o. b.i.d. prn. 7. Multivitamin with minerals one tab p.o. daily. 8. Claritin 10 mg p.o. daily. 9. Flonase 50 mcg two sprays daily both nares. 10. Prozac 20 mg p.o. daily. 11. Flexeril 10 mg p.o. at bedtime prn. New medication: 1. Metoprolol Tartrate 25 mg p.o. daily. 2. Aspirin 81 mg p.o. daily. 3. Atorvastatin 20 mg p.o. daily. 4. Nitroglycerin 0.4 mg sublingual q.5 minutes prn times 3 doses. Was discussed with patient if she uses sublingual nitro, to notify her primary care provider or cap coverer and/or return to the emergency department. DISCHARGE PLAN: 1. Follow-up with PCP within one week. 2. Follow-up with cap coverer within three to four weeks, either Dr. Stearns or , as she has seen him before in past, through Mr. Lee Rose. 3. Referral to [facility] for lifestyle changes. TIME SPENT: Approximately 60 minutes were spent on this discharge. KIMBERLY KWOK NP [id number]/[facility] #: [id number] LISA
== END 2018-05-04 14:13 | disposition home or self-care (01) ==
LOC: ED 15:40 → MEDTELE 18:22
PROVIDERS: ADMIT Hospitalist; ATTEND Student in an Organized Health Care Education/Training Program
DX: R07.9 Chest pain, unspecified (principal); R51 Headache; R06.02 Shortness of breath; R60.9 Edema, unspecified; M06.9 Rheumatoid arthritis, unspecified; G89.29 Other chronic pain; G47.33 Obstructive sleep apnea (adult) (pediatric); N32.81 Overactive bladder; F32.9 Major depressive disorder, single episode, unspecified; K21.9 Gastro-esophageal reflux disease without esophagitis; E66.01 Morbid (severe) obesity due to excess calories; Z68.43 Body mass index [BMI] 50.0-59.9, adult
CPT/HCPCS: 36415; 71045; 71275; 78452; 80048; 80053; 80061; 83036; 83605; 84484; 85025; 93005; 93017; 99284; A9270-GY; A9502; G0378; J1644; Q9967

== ENCOUNTER 2018-05-28 11:46 | Emergency (ER) | payer BC ==
--- OUTSIDE RECORDS SUMMARY | 2018-05-28 11:52 | XMS REPORT ---
:1970 External Reference #:[id number] Author Organization [facility] Address [address] [place] [address] Phone [phone] Care Team Providers Name Role Phone Dennis Malagon MD Primary Care Physician Unavailable Payers Type Date Identification Numbers Payment Provider Subscriber Commercial Policy Number: [id number] [facility] It[employer] Group Number: [id number] [address] PayID: [id number] [place] [address] Problems Date Description Provider Status Onset: 09/07/2011 Atrial fibrillation Shekhar Stearns M.D. Active Onset: 05/01/2013 Chest pain Shekhar Stearns M.D. Active Onset: 05/01/2013 Morbid obesity Shekhar Stearns M.D. Active Onset: 05/01/2013 Palpitations Shekhar Stearns M.D. Active Family History Date Family Member(s) Problem(s) Comments General Cardiomyopathy General Lupus General Aunt has lupus; however her aunt is not related by blood Father due to Choking after () trauma : (age 56 Mother due to CAD chf 45 Years) Paternal Grandfather due to Asthma () Paternal Grandfather due to Diabetes () Paternal Grandfather due to Hypertension () : (age 58 Maternal Grandmother due to CAD Years) Maternal Grandmother Cardiomyopathy at 58 Social History Type Date Description Comments Marital Status Lives With Children Lives With Spouse Occupation works at [employer] Cigarette Use Never Smoked Cigarettes ETOH Use Denies alcohol use Recreational Drug Use Denies Drug Use formerly used M[place]ang, [place], and ephedra during body building age [age]. Smoking Patient has never smoked Exercise Type/Frequency Exercises regularly Allergies, Adverse Reactions, Alerts Date Description Reaction Status Severity Comments 12/24/2008 Zoloft active rash 10/07/2016 Oxycodone Allergic asthma active 03/31/2017 Percocet Allergic asthma active Medications Medication Date Status Form Strength Qnty SIG Indications Ordering Provider Plaquenil 01/04 Active Tablets 200mg 60tab 2 by mouth s daily Zulma George Prevacid 01/[address] 30mg 60cap Take one K21.9 s capsule/tab keagan George daily M.DRoss by mouth for reflux Nasonex 03/15 Active Suspension 50mcg/Act 6Bot3 2 sprays to M each F. nostril Daryn, twice daily M.DRoss Multivitamins Active Tablets 90tab 1 po qd Unknown /0000 s Vesicare Active Tablets 10mg 30tab 1 po qd Unknown / s Claritin Active Capsules 10mg 30cap 1 tablet Unknown / s daily Prozac Active Capsules 20mg 90cap 1 po qd Unknown /0000 s Metoprolol Active Tablets 25mg tid prn Unknown Tartrate / palpitation s Trazodone HCL Active Tablets 100mg Unknown /0000 Sumatriptan Active Tablets 100mg use at Unknown Succinate /0000 onset of head ache,may repeat after 2h as needed Naproxen Active Tablets 500mg 1 tablet Unknown /0000 with food by mouth twice a day Cyclobenzaprine Active Tablets 10mg 1 hs prn Unknown HCL /0000 Potassium 10/06 Hx Tablets ER 20Meq 30tab 1 by mouth Shekhar Chloride /2010 s every day Nimco Stearns M.D. Omeprazole 07/[address] 40mg 30cap 1 by mouth s every day Nimco Stearns M.D. Colace 03/15 Hx Capsules 50mg 2 po qd prn Nimco Stearns M.D. Calcium 12/24 Hx Tablets 600-200mg 1 po tabs Shekhar Carbonate F. Vitamin D Zulma Stearns Sherrill 12/24 Hx Tablets 180mg 30tab 1 po qd prn reyna Stearns, 07/29 M.D. Nexium 12/[address] 40mg 15cap 1 po qd reyna Stearns 05/18 M.DRoss Amitriptyline Hx Tablets 25mg 30tab 1 po qhs Unknown s - 02/18 Duloxetine 60MG Hx 30uni 1 po qd Unknown /0000 ts - 02/18 Detrol LA Hx Caps ER 4mg 90cap 1 po qd Unknown 24HR s - 07/29 Motrin Hx Suspension 200mg 4 caps tid Unknown / prn - 12/[address] 40mg 30cap 1 po qd Unknown /0000 s - 09/15 Vital Signs Date Vital Result Comment 03/06/2018 Height 63 inches 5'3" Weight 286.12 lb Heart Rate 101 /min BP Systolic Sitting 112 mmHg BP Diastolic Sitting 72 mmHg Pain Level 0 O2 % BldC Oximetry 97 % BMI (Body Mass Index) 50.7 kg/m2 01/04/2018 Height 63 inches 5'3" Weight 289.00 lb Heart Rate 88 /min BP Systolic Sitting 110 mmHg BP Diastolic Sitting 70 mmHg Respiratory Rate 14 /min Pain Level 2 BMI (Body Mass Index) 51.2 kg/m2 12/11/2017 Height 63 inches 5'3" Weight 287.12 lb Heart Rate 84 /min BP Systolic Sitting 106 mmHg BP Diastolic Sitting 70 mmHg Respiratory Rate 14 /min Pain Level 3 BMI (Body Mass Index) 50.9 kg/m2 06/02/2017 Heart Rate 66 /min BP Systolic 122 mmHg BP Diastolic 82 mmHg Respiratory Rate 16 /min Body Temperature 96.3 F 03/31/2017 Heart Rate 90 /min BP Systolic Sitting 112 mmHg BP Diastolic Sitting 70 mmHg Respiratory Rate 18 /min Body Temperature 96.8 F 10/07/2016 Height 63 inches 5'3" Weight 275.00 lb Heart Rate 80 /min BP Systolic 130 mmHg BP Diastolic 76 mmHg Respiratory Rate 18 /min Body Temperature 97.2 F BMI (Body Mass Index) 48.7 kg/m2 05/01/2013 Height 63 inches 5'3" Weight 255.00 lb Heart Rate 72 /min BP Systolic 122 mmHg BP Diastolic 80 mmHg Respiratory Rate 16 /min BMI (Body Mass Index) 45.2 kg/m2 07/14/2011 Height 63 inches 5'3" Weight 258.00 lb Heart Rate 75 /min BP Systolic 128 mmHg BP Diastolic 76 mmHg BMI (Body Mass Index) 45.7 kg/m2 09/10/2010 Height 63 inches 5'3" Weight 233.00 lb Heart Rate 69 /min BP Systolic Sitting 110 mmHg L BP Diastolic Sitting 80 mmHg L BMI (Body Mass Index) 41.3 kg/m2 03/15/2010 Height 63 inches 5'3" Weight 216.25 lb Heart Rate 76 /min BP Systolic Sitting 128 mmHg BP Diastolic Sitting 78 mmHg BMI (Body Mass Index) 38.3 kg/m2 07/29/2009 Height 63 inches 5'3" Weight 235.00 lb with brace Heart Rate 86 /min BP Systolic Sitting 100 mmHg BP Diastolic Sitting 80 mmHg BMI (Body Mass Index) 41.6 kg/m2 12/24/2008 Height 63 inches 5'3" Weight 252.00 lb Heart Rate 67 /min BP Systolic Sitting 104 mmHg L BP Diastolic Sitting 74 mmHg L BMI (Body Mass Index) 44.6 kg/m2 Results Test Date Test Result H/L Range Note Laboratory test finding 03/02/2018 Erythrocyte Sed Rate 22 mm/Hr High 0- 14 1 C Reactive Protein 18.65 mg/L High < 5.00 2 CBC Auto Diff 03/02/2018 White Blood Count 6.7 10^3/uL 3.5-10.8 Red Blood Count 4.64 10^6/uL 4.0-5.4 Hemoglobin 13.3 g/dL 12.0-16.0 Hematocrit 39 % 35-47 Mean Corpuscular Volume 85 fL 80-97 Mean Corpuscular Hemoglobin 29 pg 27-31 Mean Corpuscular HGB Conc 34 g/dL 31-36 Red Cell Distribution Width 14 % 10.5-15 Platelet Count 349 10^3/uL 150-450 Mean Platelet Volume 8.3 um3 7.4-10.4 Abs Neutrophils 4.0 10^3/uL 1.5-7.7 Abs Lymphocytes 2.1 10^3/uL 1.0-4.8 Abs Monocytes 0.4 10^3/uL 0-0.8 Abs Eosinophils 0.2 10^3/uL 0-0.6 Abs Basophils 0 10^3/uL 0-0.2 Abs Nucleated RBC 0 10^3/uL Granulocyte % 59.1 % 38-83 Lymphocyte % 31.3 % 25-47 Monocyte % 6.5 % 0-7 Eosinophil % 2.6 % 0-6 Basophil % 0.5 % 0-2 Nucleated Red Blood Cells % 0.1 Comp Metabolic Panel 03/02/2018 Sodium 137 mmol/L Low 139-145 Potassium 4.2 mmol/L 3.5-5.0 Chloride 104 mmol/L 101-111 Co2 Carbon Dioxide 26 mmol/L 22-32 Anion Gap 7 mmol/L 2-11 Glucose 132 mg/dL High 70-100 Blood Urea Nitrogen 11 mg/dL 6-24 Creatinine 0.80 mg/dL 0.51-0.95 BUN/Creatinine Ratio 13.8 8-20 Calcium 9.2 mg/dL 8.6-10.3 Total Protein 6.6 g/dL 6.4-8.9 Albumin 3.9 g/dL 3.2-5.2 Globulin 2.7 g/dL 2-4 Albumin/Globulin Ratio 1.4 1-3 Total Bilirubin 0.20 mg/dL 0.2-1.0 Alkaline Phosphatase 95 U/L 34-104 Alt 15 U/L 7-52 Ast 9 U/L Low 13-39 Egfr Non- 77.6 >60 Egfr 99.8 >60 3 Cardiolipin Igg/Igm 12/13/2017 Phospholipid Ab IgM, S < 9.4 MPL 4 Phospholipid Ab IgG < 9.4 GPL 5 Laboratory test finding 12/13/2017 Creatine Kinase(CK) 211 U/L 10-223 Hla B27 12/13/2017 Hla B27 Negative 6 Hla B27 Interp See Comment 7 Laboratory test finding 12/13/2017 Vitamin D, 1,25 Dihydroxy 60 pg/mL 18- 78 8 Vitamin B12 And Folate 12/13/2017 Vitamin B12 601 pg/mL 180-914 9 Serum Folic Acid (Folate) > 20.00 ng/mL >3.99 Celiac Hla 12/13/2017 Hla-Dqa1 SEE BELOW 10 Hla-DQB1 SEE BELOW 11 Celiac Gene Pairs Present? Yes Celiac Gene Interpretation See Comment 12 Laboratory test finding 12/13/2017 Complement C4 26 mg/dL 14 - 40 13 Complement C3 140 mg/dL 75 - 175 14 Anti Double Stranded Dna AB <12.3 IU/mL 15 Madeleine Igg AB Reflex 12/13/2017 SS-A/Ro Antibody <0.2 U 16 SS-B/La Antibody <0.2 U 17 Sm (Chopra) IgG Antibody <0.2 U 18 U1-nRNP Antibody 0.2 U 19 Scl-70 (Scleroderma) Antibody <0.2 U 20 Lili-1 Antibody <0.2 U 21 Laboratory test finding 12/13/2017 Angiotensin Converting 22 U/L 8 - 53 22 Enzyme Anca AB Ser If 12/13/2017 C-Anca Negative Negative P-Anca Negative Negative 23 Laboratory test 12/13/2017 Cyclic Citrullinated <15.6 U 24 finding Pep Igg Laboratory test 03/01/2017 Surgical Pathology SEE RESULT 25, 26 finding BELOW CBC With Manual 03/17/2009 White Blood Count 7.1 CUMM 4.8-10.8 27 Diff Red Cell Count 4.51 CUMM 4.2-5.4 27 Hemoglobin 13.4 g/dL 12.0-16.0 27 Hematocrit 40 % 35-47 27 Mean Corpuscular Volume 88 um3 79-97 27 Mean Corpuscular Hemoglob 30 pg 27-31 27 Mean Corpuscular HGB Cone 34 g/dL 32-36 27 Redcell Distribution WDTH 13 % 10.5-15 27 Platelet Count 332 CUMM 150-450 27 Mean Platelet Volume 7.9 um3 7.4-10.4 27 Polysegmented Neutrophil 65 % 38-83 27 Band Neutrophil 1 % 0-8 27 Lymphocyte 30 % 25-47 27 Monocyte 4 % 0-13 27 Absolute Neutrophil Count 4.6 27 Anisocytosis SLIGHT 27 Laboratory test finding 03/17/2009 CPK (Creatine Kinase) 129 U/L 0-170 27 BNP Evaluatr 30.0 pg/mL 0-100 27 TSH 1.02 MIU/ML 0.34-5.60 27 Lipid Profile (Trig/Chol/HDL) 03/17/2009 Triglyceride 49 mg/dL 40-200 27 Cholesterol 174 mg/dL Less Than 200 27, 28 High Density Lipoprotein 48 mg/dL 40-60 27, 29 Cholesterol/HDL Ratio 3.63 AVERAGE 1-4.44 27 Low Density Lipoprotein 116 mg/dL High Less Than 100 27, 30 Comp Metabolic Panel 03/17/2009 Sodium 137 mmol/L 135-145 27 Potassium 4.6 mmol/L 3.5-5.0 27 Chloride 106 mmol/L 101-111 27 Co2 (Carbon Dioxide) 26.0 mmol/L 22-32 27 Anion Gap 5.0 mmol/L 2-11 27, 31 Glucose 87 mg/dL 70-100 27, 32 BUN 10 mg/dL 6-24 27 Creatinine 0.70 mg/dL 0.50-1.40 27 One Over Creatinine 1.40 27 BUN/Creatinine Ratio 14.3 8-20 27 Calcium 9.3 mg/dL 8.1-9.9 27, 33 Total Protein 6.5 GM/DL 6.2-8.1 27 Albumin 3.7 GM/DL 3.6-5.4 27 Globulin 2.8 GM/DL 2-4 27 Albumin/Globulin Ratio 1.3 1-3 27 Bilirubin Total 0.6 mg/dL 0.4-1.5 27, 34 Alkaline Phosphatase 63 U/L 30-110 27 Alt (SGPT) 19 U/L 14-54 27 Ast (Sgot) 14 U/L 12-42 27 1 Please check labs 2 days before follow up 2 Acute inflammation: >10.00 3 Because ethnic data is not always readily available, this report includes an eGFR for both -Americans and non- Americans. The National Kidney Disease Education Program (NKDEP) does not endorse the use of the MDRD equation for patients that are not between the ages of 18 and 70, are , have extremes of body size, muscle mass, or nutritional status, or are non- or non-. According to the National Kidney Foundation, irrespective of diagnosis, the stage of the disease is based on the level of kidney function: Stage Description GFR(mL/min/1.73 m(2)) 1 Kidney damage with normal or decreased GFR 90 2 Kidney damage with mild decrease in GFR 60-89 3 Moderate decrease in GFR 30-59 4 Severe decrease in GFR 15-29 5 Kidney failure <15 (or dialysis) 4 REFERENCE VALUE <15.0 (Negative) 5 REFERENCE VALUE <15.0 (Negative) Test Performed by: [facility] - [address] [address] 6 REFERENCE VALUE Not Applicable 7 RESULT: HLA-B27 antigen was not detected. ADDITIONAL INFORMATION Method: Flow Cytometry Performing Laboratory CLIA# [id number] Test Performed by: [facility] - [address] [address] 8 ADDITIONAL INFORMATION This test was developed and its performance characteristics determined by [facility] in a manner consistent with CLIA requirements. This test has not been cleared or approved by the U.S. Food and Drug Administration. Test Performed by: [facility] - [facility] [address] [place] [address] 9 Normal Range 180 to 914 Indeterminate Range 145 to 180 Deficient Range <145 10 RESULT: 02:01,05 REFERENCE VALUE Not Applicable 11 RESULT: 02:02,03:01 DQ Serologic Equivalent: 2,7 REFERENCE VALUE Not Applicable 12 These genes are permissive for celiac disease. The absence of HLA celiac permissive genes would make the presence of celiac disease unlikely. However, these genes can also be present in the normal population. ADDITIONAL INFORMATION Method: Molecular typing of HLA antigens performed using reverse SSOP and/or SSP methods, reported as serological equivalents and low to medium resolution molecular values. Performing Laboratory IA# [id number] Test Performed by: [place] [address] 13 Test Performed by: [place] [address] 14 Test Performed by: [address] [address] 15 REFERENCE VALUE <30.0 (Negative) Test Performed by: [address] [address] 16 REFERENCE VALUE <1.0 (Negative) 17 REFERENCE VALUE <1.0 (Negative) 18 REFERENCE VALUE <1.0 (Negative) 19 REFERENCE VALUE <1.0 (Negative) 20 REFERENCE VALUE <1.0 (Negative) 21 REFERENCE VALUE <1.0 (Negative) Test Performed by: [address] [address] 22 Test Performed by: [address] [address] 23 Negative for cANCA and pANCA patterns by immunofluorescence. ADDITIONAL INFORMATION This test was developed and its performance characteristics determined by [facility] in a manner consistent with CLIA requirements. This test has not been cleared or approved by the U.S. Food and Drug Administration. Test Performed by: [facility] - [address] [address] REFERENCE VALUE <20.0 (Negative) Test Performed by: [address] [address] 25 [id number] SEE RESULT BELOW Name: ITZ DAMIAN : [address]: Slim Escobar MD Acct: [id number] Unit: [id number] AGE: 46 Location: [facility] Re03/01/17 SEX: F Status: REG REF SPEC: [id number] CHRIS: 03/01/17-[address]: Katrin Dozier MD REQ: [id number] RECD: 03/01/17 STATUS: ROCK NOBLES DR: Slim Escobar MD _ ORDERED: LEVEL 4 COMMENTS: [id number] FINAL DIAGNOSIS Breast, right, core biopsies: -- Benign breast tissue with fibrotic scar with dystrophic calcifications and associated xanthomatous inflammation with hemosiderin laden macrophages compatible with prior hemorrhage. -- No evidence of neoplasia identified. PRE-OPERATIVE DIAGNOSIS Fat neuroma versus calcified cyst right breast GROSS DESCRIPTION The specimen is received in formalin labeled, Right Breast, and consists of three yellow-white fibrofatty soft tissue cores aggregating 1.8 x 0.6 x 0.2 cm which is filtered and entirely submitted in one cassette. Signed (signature on file) Mark Lobo MD 1040 END OF REPORT * ML=Testing performed at Main Lab DEPARTMENT OF PATHOLOGY, [address] [place] [address] Mark Lobo M.D. Director [facility] # [id number] 27 FASTING 28 CHOLESTEROL INTERPRETATION: Desirable: Less than 200 MG/DL Borderline-High Risk: 200-239 MG/DL High-Risk: 240 MG/DL and over 29 HDL INTERPRETATION: Undesirable: High Risk: Less than 40 MG/DL Desirable: Low Risk: Greater than 60 MG/DL 30 LDL INTERPRETATION: Low Risk Optimal Level: LDL Less than 100 MG/DL Near or Above Optimal: LDL 100-129 MG/DL Borderline High Risk: LDL 130-159 MG/DL High Risk: LDL 160-189 MG/DL Very High Risk: LDL Greater than 189 MG/DL 31 Anion gap measurement may be of limited value in the presence of any alkalosis, especially in a combined acid base disorder. . 32 Note change in reference range as of 05/15/08. The change was based on recommendations from the [place] [employer]. 33 Please note change in reference range effective 08 . 34 A metabolite of Naproxen, O-desmethylnaproxen, has been shown to interfere with the Jendrassik-Suzanne method for measuring total bilirubin. Samples from patients who have taken Naproxen have shown spurious elevation in total bilirubin levels. Procedures Date CPT Code Description Status 03/01/2017 Mammogram Completed 02/21/2017 Mammogram Completed 10/30/2015 Mammogram Completed 05/01/2013 24830 EKG Tracing & Interpretation Completed 07/14/2011 42227 EKG Tracing & Interpretation Completed 09/10/2010 72998 EKG Tracing & Interpretation Completed 08/31/2010 75948 Holter Monitor Completed 03/15/2010 07864 EKG Tracing & Interpretation Completed 03/02/2010 59029 ECHO Transthoracic, Real-Time 2D With Doppler And Color Completed Flow 10/06/2009 91790 Treadmill Interp/Report Only Completed 10/06/2009 95942 Stress Test Supervsn W/Out I/R Completed 07/29/2009 86466 EKG Tracing & Interpretation Completed 05/07/2009 0 Payment Completed 04/27/2009 12274 ECHO Stress Test Incl Perf Contiuous ekg Monitoring Completed W/Phys Superv 03/16/2009 28850 Holter Monitor Interpretation Completed 03/10/2009 27913 ECHO Transthoracic, Real-Time 2D With Doppler And Color Completed Flow 02/18/2009 63239 EKG Tracing & Interpretation Completed Encounters Type Date Location Provider CPT E/M Dx Office Visit 03/06/2018 [facility] Hem[facility] George M.D. 66472 M06.4 8:00a Of [employer] Z79.899 M79.1 R20.8 Office Visit 01/04/2018 11:40a [facility] 95541 M06.4 Diony Maya R76.0 K21.9 Z79.899 Office Visit 12/11/2017 4:00p [facility], 78532 M06.4 Diony Maya R76.0 R20.8 M79.1 M54.5 Office Visit 06/02/2017 10:00a [facility], [address] N63 Diony M.D. Office Visit 03/31/2017 11:30a [facility], [address] N63 Ultrasonic Cleaner M.D. Office Visit 10/07/2016 11:30a [facility] [place], [address] N63 Ultrasonic Cleaner M.D. Office Visit 05/01/2013 9:40a [facility] Shekhar Stearns 24540 785.1 MErnie 278.01 786.50 530.81 Office Visit 07/14/2011 11:40a [facility] Shekhar Stearns M.D. 92367 785.1 278.01 786.59 Office Visit 09/10/2010 10:20a [facility] Shekhar Stearns M.D. 06187 785.1 427.31 278.01 786.59 Office Visit 03/15/2010 9:00a [facility] Shekhar Stearns 88205 786.59 MErnie 785.1 278.01 Office Visit 07/29/2009 10:00a [facility] Shekhar Stearns M.D. 85413 424.0 785.1 786.59 Office Visit 02/18/2009 2:20p [facility] Shekhar Stearns M.D. 76751 785.1 786.59 786.09 782.3 Plan of Care Future Appointment(s):08/06/2018 8:20 am - Hemant George M.D. 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
--- NOTE | 2018-05-28 11:55 | UC ---
Lower Extremity/Ankle HPI - HPI Summary HPI Summary: 47 y/o female presents to the urgent care c/o left foot radiating to her ankle since this morning at 1000Am. Pt reports she works night shifts. She returned from work at 0800Am. Then she sat on a chair and when she was going to stand up she had a mild left foot pain. Pain has worsen since then. Now it is 8/10 specially w/ walking. She has PMHX of RA and NIKIA. She took her medication this morning for RA to alleviate her symptoms w/o any improvement. Pt denies numbness or tingling sensation of the foot. She is able to walk w/ mild limping. Pt denies SOB, chest pain, abdominal pain, N/V/D. She also states she has hospitalize at [facility] on 05/02/2018 to r/o SD which was negative. - History of Current Complaint Stated Complaint: FOOT PAIN Time Seen by Provider: 05/28/18 11:54 Hx Obtained From: Patient Hx Last Menstrual Period: 04/26/2018 ?: No Onset/Duration: Sudden Onset, Lasting Hours - 4hrs, Still Present Severity Initially: Moderate Severity Currently: Moderate Pain Intensity: 8 Pain Scale Used: 0-10 Numeric Aggravating Factor(s): Standing, Ambulation Alleviating Factor(s): Rest Able to Bear Weight: No - Risk Factors Gout Risk Factors: Age Over 40, Obesity DVT Risk Factors: Negative Septic Arthritis Risk Factor: Negative - Allergies/Home Medications Allergies/Adverse Reactions: Allergies Allergy/AdvReac Type Severity Reaction Status Date / Time acetaminophen [From Percocet] Allergy Severe Difficulty Verified 05/28/18 12:03 Breathing hydrocodone [From Vicodin] Allergy Severe Difficulty Verified 05/28/18 12:03 Breathing oxycodone [From Percocet] Allergy Severe Difficulty Verified 05/28/18 12:03 Breathing sertraline Allergy Severe Rash Verified 05/28/18 12:03 PMH/Surg Hx/FS Hx/Imm Hx Previously Healthy: Yes Endocrine History: Dyslipidemia Other Endocrine History: RA, NIKIA Cardiovascular History: Hypertension - diet controlled - Surgical History Surgical History: Yes Surgery Procedure, Year, and Place: C SECTION. KNEE SURGERY - Family History Known Family History: Positive: Cardiac Disease - cardiac myopathy, SD, CHF ( mother, grandmother) - Social History Occupation: Employed Full-time Lives: With Family Alcohol Use: Rare Alcohol Amount: 1 month Substance Use Type: None Substance Use Comment - Amount & Last Used: Trazadone Smoking Status (MU): Never Smoked Tobacco Have You Smoked in the Last Year: No Review of Systems Constitutional: Negative Skin: Negative Eyes: Negative ENT: Negative Respiratory: Negative Cardiovascular: Negative Gastrointestinal: Negative Genitourinary: Negative Motor: Negative Neurovascular: Negative Musculoskeletal: Decreased ROM - left foot, Other: - left foot pain and left ankle pain Neurological: Negative Psychological: Negative Is Patient Immunocompromised?: No All Other Systems Reviewed And Are Negative: Yes Physical Exam - Summary Physical Exam Summary: Vital Signs Reviewed: Yes General : well developed, well nourished female w/o any apparent distress Eyes: Positive: Conjunctiva Clear - PERRLA, EOMI ENT: Positive: Normal ENT inspection, Hearing grossly normal, Pharynx normal, TMs normal Neck: Positive: Supple, Nontender, No Lymphadenopathy Respiratory: Positive: Chest non-tender, Lungs clear, Normal breath sounds, No respiratory distress Cardiovascular: Positive: RRR, No Murmur, Pulses Normal Abdomen Description: Positive: Nontender, No Organomegaly, Soft. Negative: CVA Tenderness (R), CVA Tenderness (L) Bowel Sounds: Positive: Present Musculoskeletal: Positive: Strength Intact, ROM Intact, No Edema, Other: - Foot/ Toes: Pt is able to bear weight but ambulate with mild limping. RT foot :No surface trauma, ecchymosis, erythema, lesions, ulcers or break in skin integrity. The R foot is without obvious asymmetry or deformity when compared to the L foot. No bony step-off, No tenderness to palpation over toes, point tenderness over the dorsal side of mid foot and base of the 4th and 5th metatarsal and sole at the same level, no tenderness of hindfoot, Decrease plantar/dorsiflexion, inversion/eversion due to pain. Distal motor and neurovascular status are intact. Neurological Exam: Normal Psychological Exam: Normal Skin Exam: Normal Triage Information Reviewed: Yes Lower Extremity Course/Dx - Course Course Of Treatment: 47 y/o female presents to the urgent care c/o left foot radiating to her ankle since this morning at 1000Am. Pt reports she works night shifts. She returned from work at 0800Am. Then she sat on a chair and when she was going to stand up she had a mild left foot pain. Pain has worsen since then. Now it is 8/10 specially w/ walking. She has PMHX of RA and NIKIA. She took her medication this morning for RA to alleviate her symptoms w/o any improvement. Pt denies numbness or tingling sensation of the foot. She is able to walk w/ mild limping. Pt denies SOB, chest pain, abdominal pain, N/V/D. She also states she has hospitalize at [facility] on 05/02/2018 to r/o SD which was negative. Hx obtained. LF foot and left ankle X-ray ordered, Impression:There was no fracture, dislocation, soft tissue swelling or FB noted. Probably plantar fasciitis or tendonitis. Pt's foot immobilized with bridgett-bandage and given a post-op shoe to avoid flexion. Advised RICE, and Rx Naproxen PO for pain , If not improvement of symptoms to f/u with Orthopedic DR referral for further evaluation and treatment. Pt understood and agreed with D/C instructions - Differential Dx/Diagnosis Differential Diagnosis/HQI/PQRI: Contusion, Fracture (Closed), Gout, Sprain, Strain, Tendonitis, Other - RA Provider Diagnoses: 1- left ankle and foot pain. 2- left foot sprain. 3- Uncontrolled HTN Discharge - Sign-Out/Discharge Documenting (check all that apply): Patient Departure - D/c home - Discharge Plan Condition: Stable Disposition: HOME Prescriptions: Naproxen TAB* [Naprosyn 250 mg TAB*] 250 mg PO Q8H PRN #30 tab PRN Reason: Pain Referrals: Dennis Malagon MD [Primary Care Provider] - - Billing Disposition and Condition Condition: STABLE Disposition: Home
[2018-05-28 12:02] VITALS: BP 146/86
[2018-05-28] MEDS ORDERED: Naproxen TAB* 250 MG PO ONE (12:30)
--- NOTE | 2018-05-28 13:41 | RAD ---
Indication: Left ankle pain. 3 views of left ankle demonstrates no fracture. Soft tissue swelling is noted. Ankle mortise is intact. IMPRESSION: Soft tissue swelling without evidence of fracture.
--- NOTE | 2018-05-28 13:41 | RAD ---
Indication: Left ankle pain. 3 views of left foot demonstrates no fracture. No other bone or joint abnormality is identified. IMPRESSION: No fracture of the left foot is noted.
--- NOTE | 2018-05-29 08:48 | UC ---
- Progress Note Progress Note: Foot and ankle films neg fx Discharge - Sign-Out/Discharge Documenting (check all that apply): Post-Discharge Follow Up All imaging exams completed and their final reports reviewed: Yes - Discharge Plan Condition: Stable Disposition: HOME Prescriptions: Naproxen TAB* [Naprosyn 250 mg TAB*] 250 mg PO Q8H PRN #30 tab PRN Reason: Pain Patient Education Materials: Foot Sprain (ED), Low-Sodium Diet (ED), Heel Spur (ED) Forms: *Work Release Referrals: Levi Beckett MD [Medical Doctor] - Dennis Malagon MD [Primary Care Provider] - 1 Week Additional Instructions: 1-Please take Naproxen PO as directed after meals to alleviate pain and swelling. 2-Please apply ice, keep your foot immobilized with the Srinivas bandage and post-op shoe. Avoid strenuous exercise or standing for long periods of time. elevate your foot 3- Please f/u with your PCP or Orthopedic DR Beckett in 1 week if not improvement of symptoms for further evaluation and treatment. 4- Your BP is elevated today. please decrease salt in your diet, monitor BP and if it continues to be elevated please f/u with your PCP for further management - Billing Disposition and Condition Condition: STABLE Disposition: Home
== END 2018-05-28 14:06 | disposition home or self-care (01) ==
LOC: UCEAST 11:46
DX: M25.572 Pain in left ankle and joints of left foot (principal); S93.602A Unspecified sprain of left foot, initial encounter; X58.XXXA Exposure to other specified factors, initial encounter; Y93.9 Activity, unspecified; Y92.9 Unspecified place or not applicable; I10 Essential (primary) hypertension; Z88.6 Allergy status to analgesic agent; Z88.5 Allergy status to narcotic agent; Z88.8 Allergy status to other drugs, medicaments and biological substances
CPT/HCPCS: 99212; A9270-GY; G0463

== ENCOUNTER 2019-12-23 13:33 | Emergency (ER) | payer BC, OTHER ==
--- OUTSIDE RECORDS SUMMARY | 2019-12-23 13:42 | XMS REPORT | Continuity of Care Document ---
:1970 External Reference #:[id number] Author Name Hemant George M.D. (transmitted by agent of provider Fatou Ortega) Address [address] [place] [id number] Care Team Providers Name Role Phone Dennis Malagon MD - Internal Care Team Information Production Line Technician [phone] Medicine Problems Active Problems Provider Date Atrial fibrillation Shekhar Stearns M.D. Onset: 09/07/2011 Palpitations Shekhar Stearns M.D. Onset: 05/01/2013 Morbid obesity Shekhar Stearns M.D. Onset: 05/01/2013 Chest pain Shekhar Stearns M.D. Onset: 05/01/2013 Social History Type Date Description Comments Sex Unknown Tobacco Use Start: Unknown Never Smoked Cigarettes ETOH Use Drinks Alcoholic Beverages Rarely Recreational Drug Use Denies Drug Use formerly used Mawang, [place], and ephedra during body building age [age]. Tobacco Use Start: Unknown Patient has never smoked Smoking Status Reviewed: 11/28/19 Patient has never smoked Exercise Type/Frequency Exercises regularly recumbant bike Allergies, Adverse Reactions, Alerts Active Allergies Reaction Severity Comments Date Zoloft rash 12/24/2008 Oxycodone Allergic asthma 10/07/2016 Percocet Allergic asthma 03/31/2017 Medications Active Medications SIG Qnty Indications Ordering Date Provider Wrist Brace use nightly hand/ 2unharshal Marcos [facility] wrist brace for the Zulma George 0 right wrist to help improve epicondylitis m25.531 Mandibular Advancement dear , please 1units G47.33 Angela 11/11/201 Device evaluate and MD Yevgeniy 9 Device fabricate oral appliance for mild-moderate sleep apnea Lansoprazole Take 1 Capsule By 90caps Hemant 30mg Capsules DR Mouth Every Day For Zulma George 9 Reflux Hydroxychloroquine Take 2 Tablets By 180tabs Hemant Sulfate Mouth Daily Zulma George 9 200mg Tablets Nasonex 2 sprays to each 6Bot3M Shekhar JonesRoss 50mcg/Act Suspension nostril twice daily Zulma Stearns 0 Multivitamins 1 po qd 90tabs Unknown Tablets 0 Vesicare 1 po qd 30tabs Unknown 10mg Tablets 0 Claritin 1 tablet daily 30caps Unknown 10mg Capsules 0 Prozac 1 po qd 90caps Unknown 20mg Capsules 0 Trazodone HCL Unknown 100mg Tablets 0 Sumatriptan Succinate use at onset of Unknown 100mg head ache,january 0 Tablets repeat after 2h as needed Naproxen 1 tablet with food 90tabs Hemant 500mg Tablets by mouth twice a Zulma George 0 day as needed for pain Immunizations Description No Information Available Vital Signs Date Vital Result Comment 11/28/2019 10:12am Height 63 inches 5'3" Weight 290.00 lb Heart Rate 83 /min BP Systolic Sitting 118 mmHg BP Diastolic Sitting 78 mmHg Body Temperature 97.4 F Pain Level 4 O2 % BldC Oximetry 96 % BMI (Body Mass Index) 51.4 kg/m2 10/17/2019 4:05pm Height 63 inches 5'3" Weight 292.00 lb Heart Rate 90 /min BP Systolic Sitting 124 mmHg BP Diastolic Sitting 80 mmHg Body Temperature 98.6 F Pain Level 5 O2 % BldC Oximetry 96 % BMI (Body Mass Index) 51.7 kg/m2 Results Test Acquired Date Facility Test Result H/L Range Note Laboratory test 11/06/2019 [facility] Erythrocyte Sed 24 mm/Hr High 0-19 [address] [place] [address] [phone] C Reactive Protein 26.30 mg/L High <8.01 2 Connective Tissue 11/06/2019 [facility] Anti-Nuclear Antibody 0.2 U [address] [place] [address] [phone] Cyclic Citrullinated Peptide <15.6 U 4 Interpretation See Comment 5 Laboratory test 11/06/2019 [facility] Rheumatoid < 10 IU/mL Normal <[address] [place] [address] [phone] Uric Acid 4.4 mg/dL Normal 2.3-6.6 7 TSH (Thyroid Stim Horm) 2.24 mcIU/mL Normal 0.34-5.60 8 Vitamin D Total 25(Oh) 23.5 ng/mL Normal 20-50 9 CBC Auto 11/06/2019 [facility] White Blood 8.0 10^3/uL Normal 3.5-10.[address] [place] [address] [phone] Red Blood Count 4.49 10^6/uL Normal 3.70-4.87 Hemoglobin 13.1 g/dL Normal 12.0-16.0 Hematocrit 39 % Normal 35-47 Mean Corpuscular Volume 87 fL Normal 80-97 Mean Corpuscular Hemoglobin 29 pg Normal 27-31 Mean Corpuscular HGB Conc 34 g/dL Normal 31-36 Red Cell Distribution Width 14 % Normal 10-15 Platelet Count 354 10^3/uL Normal 150-450 Mean Platelet Volume 7.9 fL Normal 7.4-10.4 Abs Neutrophils 5.1 10^3/uL Normal 1.5-7.7 Abs Lymphocytes 2.1 10^3/uL Normal 1.0-4.8 Abs Monocytes 0.7 10^3/uL Normal 0-0.8 Abs Eosinophils 0.1 10^3/uL Normal 0-0.6 Abs Basophils 0.0 10^3/uL Normal 0-0.2 Abs Nucleated RBC 0.0 10^3/uL Granulocyte % 63.7 % Lymphocyte % 25.8 % Monocyte % 8.5 % Eosinophil % 1.8 % Basophil % 0.2 % Nucleated Red Blood Cells % 0.1 Comp Metabolic 11/06/2019 [facility] Sodium 138 mmol/L Normal 135-[address] [place] [address] [phone] Potassium 4.3 mmol/L Normal 3.5-5.0 Chloride 103 mmol/L Normal 101-111 Co2 Carbon Dioxide 29 mmol/L Normal 22-32 Anion Gap 6 mmol/L Normal 2-11 Glucose 107 mg/dL High 70-100 Blood Urea Nitrogen 12 mg/dL Normal 6-24 Creatinine 0.75 mg/dL Normal 0.51-0.95 BUN/Creatinine Ratio 16.0 Normal 8-20 Calcium 9.7 mg/dL Normal 8.6-10.3 Total Protein 6.6 g/dL Normal 6.4-8.9 Albumin 4.0 g/dL Normal 3.2-5.2 Globulin 2.6 g/dL Normal 2-4 Albumin/Globulin Ratio 1.5 Normal 1-3 Total Bilirubin 0.20 mg/dL Normal 0.2-1.0 Alkaline Phosphatase 88 U/L Normal 34-104 Alt 19 U/L Normal 7-52 Ast 13 U/L Normal 13-39 Egfr Non- 82.8 >60 Egfr 100.2 >60 10 1 Please check labs this week 2 Please check labs this week 3 REFERENCE VALUE <=1.0 (Negative) 4 REFERENCE VALUE <20.0 (Negative) 5 Tests for antibodies to dsDNA and JAREK antigens are not performed automatically unless the MERISSA result is > or = 3.0 U. Studies performed at [facility] indicate that positive MERISSA results <3.0 U are rarely accompanied by positive second order tests. Test Performed by: [facility] [place] [address] [place] [address] Quiller Operator: Pedro Pablo Penny M.D. Ph.D.; CLIA# [id number] Please check labs this week 7 Please check labs this week 8 Please check labs this week 9 Total 25-Hydroxyvitamin D2 and D3 (25-OH-VitD) <10 ng/mL (severe deficiency) 10-19 ng/mL (mild to moderate deficiency) 20-50 ng/mL (optimum levels) 51-80 ng/mL (increased risk of hypercalciuria) >80 ng/mL (toxicity possible) 10 Because ethnic data is not always readily [...] 15-29 5 Kidney failure <15 (or dialysis) Procedures Date Code Description Status 03/01/2017 [id number] Mammogram Completed 02/21/2017 [id number] Mammogram Completed 10/30/2015 [id number] Mammogram Completed Medical Devices Description No Information Available Encounters Type Date Location Provider Dx Diagnosis Office Visit 11/28/2019 Rheumatology Hemant George M06.4 Inflammatory 10:00a [facility] polyarthropathy R06.00 Dyspnea, unspecified L74.9 Eccrine sweat disorder, unspecified E55.9 Vitamin D deficiency, unspecified Office Visit 10/17/2019 Rheumatology Hemant Ayala6.Froilan Inflammatory 3:40p [facility] George M.D. polyarthropathy Z79.899 Other ferry terminal supervisor (current) drug therapy R79.82 Elevated C-reactive protein (CRP) M77.11 Lateral epicondylitis, right elbow E55.9 Vitamin D deficiency, unspecified K21.9 Gastro-esophageal reflux disease without esophagitis Office Visit 08/05/2019 10:30a Pulmonology And Angela G47.33 Obstructive sleep Sleep Services [facility] MD Yevgeniy apnea (adult) Diony (pediatric) Z68.43 Body mass index (BMI) 50.0-59.9, adult E66.01 Morbid (severe) obesity due to excess calories Assessments Date Code Description Provider 11/28/2019 M06.4 Inflammatory polyarthropathy Hemant George M.D. 11/28/2019 R06.00 Dyspnea, unspecified Hemant George M.D. 11/28/2019 L74.9 Eccrine sweat disorder, unspecified Hemant George M.D. 11/28/2019 E55.9 Vitamin D deficiency, unspecified Hemant George M.D. 10/17/2019 M06.4 Inflammatory polyarthropathy Hemant George M.D. 10/17/2019 Z79.899 Other ferry terminal supervisor (current) drug therapy Hemant George M.D. 10/17/2019 R79.82 Elevated C-reactive protein (CRP) Hemant George M.D. 10/17/2019 M77.11 Lateral epicondylitis, right elbow Hemant George M.D. 10/17/2019 E55.9 Vitamin D deficiency, unspecified Hemant George M.D. 10/17/2019 K21.9 Gastro-esophageal reflux disease without Hemant George M.D. esophagitis 08/05/2019 G47.33 Obstructive sleep apnea (adult) (pediatric) Angela Vuong MD 08/05/2019 Z68.43 Body mass index (BMI) 50.0-59.9, adult Angela Vuong MD 08/05/2019 E66.01 Morbid (severe) obesity due to excess calories Angela Vuong MD Plan of Treatment Future Appointment(s):12/04/2019 3:00 pm - Lorena Orozco CATTLE TRADER at [facility]11/28/2019 - Hemant George M.D.M06.4 Inflammatory polyarthropathyNew Labs:Erythrocyte Sed Rate, Ordered: 11/28/19C Reactive Protein, Ordered: 11/28/19R06.00 Dyspnea, unspecifiedNew Xrays:Chest PA & Lat 2 VWS, Ordered: 11/28/19L74.9 Eccrine sweat disorder, unspecifiedNew Labs:Hiaa,5-, Ordered: 11/28/19Creatinine Clearance, Ordered: 02/11E55.9 Vitamin D deficiency, unspecifiedFollow up:Follow up in 3 months or sooner if needed Functional Status Description No Information Available Mental Status Description No Information Available Referrals Description No Information Available
--- OUTSIDE RECORDS SUMMARY | 2019-12-23 13:42 | XMS REPORT | Continuity of Care Document ---
:1970 External Reference #:[id number] Author Name Hemant George M.D. (transmitted by agent of provider Suzi Son) Address [address] [place] [phone] Care Team Providers Name Role Phone Dennis Malagon MD - Internal Care Team Information Utilization Manager Medicine Problems Active Problems Provider Date Atrial [...] Wrist Brace [place] nightly hand[place]arshal [place] [facility] [place] the Zulma George 0 [...] Result H/L Range Note Laboratory test 11/06/2019 [facility] Erythrocyte Sed 24 mm/Hr High 0-19 [address] [place] [address] [phone] C Reactive Protein 26.30 mg/L High <8.01 2 Connective Tissue 11/06/2019 [facility] Anti-Nuclear Antibody 0.2 U [address] [place] [address] [phone] Cyclic Citrullinated Peptide <15.6 U 4 Interpretation See Comment 5 Laboratory test 11/06/2019 [facility] Rheumatoid < 10 IU/mL Normal <[address] [place] [address] [phone] Uric Acid 4.4 mg/dL Normal 2.3-6.6 7 TSH (Thyroid Stim Horm) 2.24 mcIU/mL Normal 0.34-5.60 8 Vitamin D Total 25(Oh) 23.5 ng/mL Normal 20-50 9 CBC Auto 11/06/2019 [facility] White Blood 8.0 10^3/uL Normal 3.5-10.[address] [place] [address] [phone] Red Blood Count 4.49 10^6/uL Normal 3.70-4.87 [...] Blood Cells % 0.1 Comp Metabolic 11/06/2019 [facility] Sodium 138 mmol/L Normal 135-[address] [place] [address] [phone] Potassium 4.3 mmol/L Normal 3.5-5.0 Chloride 103 [...] or = 3.0 U. Studies performed at [facility] indicate that positive MERISSA results <3.0 U are rarely accompanied by positive second order tests. Test Performed by: [facility] [place] [address] [place] [address] Fitter Machinist: Pedro Pablo Penny M.D. Ph.D.; CLIA# [id number] Please check labs this week 7 [...] dialysis) Procedures Date Code Description Status 03/01/2017 [id number] Mammogram Completed 02/21/2017 [id number] Mammogram Completed 10/30/2015 [id number] Mammogram Completed Medical Devices Description No Information Available Encounters Type Date Location Provider Dx Diagnosis Office Visit 11/28/2019 Rheumatology Hemant George M06.4 Inflammatory 10:00a [facility] polyarthropathy R06.00 Dyspnea, unspecified L74.9 Eccrine sweat disorder, unspecified E55.9 Vitamin D deficiency, unspecified Office Visit 10/17/2019 Rheumatology Hemant Ayala6.[place]ilan Inflammatory 3:40p [facility] George M.D. polyarthropathy Z79.899 Other usp (current) drug therapy R79.82 Elevated C-reactive protein [...] polyarthropathy Hemant George M.D. 10/17/2019 Z79.899 Other usp (current) drug therapy Hemant George M.D. 10/17/2019 [...] Angela Vuong MD Plan of Treatment Future Appointment(s):02/24/2020 9:40 am - Hemant George M.D. at [facility]12/04/2019 3:00 pm - Lorena Orozco NP at [facility]11/28/2019 - Hemant George M.D.M06.4 Inflammatory deluyzbqknltykpY39.00 Dyspnea, vuugfomccfoD06.9 Eccrine sweat disorder, uspiquswkerX66.9 Vitamin D deficiency, unspecifiedNew Labs:Vitamin D Total 25(Oh ), Ordered: 11/28/19Follow up:Follow up in 3 months or sooner if needed Functional Status Description No Information Available Mental Status Description No Information Available Referrals Description No Information Available
[2019-12-23 14:22] VITALS: BP 135/53
[2019-12-23 14:32] LABS: Influenza A Molecular Negative (Negative); Influenza B Molecular Negative (Negative)
--- NOTE | 2019-12-23 14:35 | UC ---
Respiratory Complaint HPI - HPI Summary HPI Summary: 49-year-old woman comes in with a chief complaint of being ill for 2 weeks. She did have exposure to somebody with influenza a just before her illness started. She did have low-grade fevers and body aches. Minimal rhinorrhea she does have a sore throat. Is like her glands are swollen. Has been having fatigue. She has been having some coughing which is not excessive. She feels a burning in her chest. She gets short of breath with activity. On December 20, 2019 she had covid 19 testing which was negative. - History of Current Complaint Chief Complaint: UCRespiratory Stated Complaint: RESP COMPLAINT Time Seen by Provider: 12/23/19 13:48 Hx Last Menstrual Period: 11/14/19 Pain Intensity: 4 - Allergies/Home Medications Allergies/Adverse Reactions: Allergies Allergy/AdvReac Type Severity Reaction Status Date / Time acetaminophen [From Percocet] Allergy Severe Difficulty Verified 12/23/19 13:44 Breathing hydrocodone [From Vicodin] Allergy Severe Difficulty Verified 12/23/19 13:44 Breathing oxycodone [From Percocet] Allergy Severe Difficulty Verified 12/23/19 13:44 Breathing sertraline Allergy Severe Rash Verified 12/23/19 13:44 Home Medications: Home Medications FLUoxetine CAP* [Prozac CAP*] 20 mg PO DAILY 09/18/12 [History Confirmed ] LoraTADine TAB(NF) [Claritin 10 MG TAB(NF)] 10 mg PO DAILY 09/18/12 [History Confirmed 12/23/19] Cyclobenzaprine TAB* [Flexeril 10 MG TAB*] 10 mg PO BEDTIME PRN 03/05/18 [ History Confirmed 12/23/19] Hydroxychloroquine TAB* [Plaquenil TAB*] 200 mg PO BID 03/05/18 [History Confirmed 12/23/19] Lansoprazole SOLUTAB* [Prevacid Solutab*] 30 mg PO DAILY 03/05/18 [History Confirmed 12/23/19] Naproxen TAB* [Naprosyn 250 mg TAB*] 500 mg PO BID PRN 03/05/18 [History Confirmed 12/23/19] SUMAtriptan TAB* [Imitrex TAB*] 100 mg PO BID PRN 03/05/18 [History Confirmed ] Solifenacin(NF) [Vesicare(NF)] 10 mg PO DAILY 03/05/18 [History Confirmed ] traZODone TAB* [Desyrel TAB*] 100 mg PO BEDTIME PRN 03/05/18 [History Confirmed 12/23/19] Fluticasone NASAL SPRAY 50MCG* [Flonase NASAL SPRAY 50MCG*] 2 spray BOTH NARES DAILY 05/02/18 [History Confirmed 12/23/19] Multivitamins/Minerals TAB* [Theragran/minerals TAB*] 1 tab PO DAILY 05/02/18 [ History Confirmed 12/23/19] Nitroglycerin TAB 0.4 MG* 0.4 mg SL Q5M PRN #10 tab 05/04/18 [Rx Confirmed 12/22] Naproxen TAB* [Naprosyn 250 mg TAB*] 250 mg PO Q8H PRN #30 tab 05/28/18 [Rx Confirmed 12/23/19] Azithromyxin ADOLPH (NF) [Z-Adolph (Zithromax) 250 mg tabs #6] 2 tab PO .TODAY, THEN 1 DAILY #6 tab 12/23/19 [Rx] PMH/Surg Hx/FS Hx/Imm Hx Previously Healthy: Yes - rheumatoid arthritis on Plaquenil, obesity, sleep apnea GI/ History: Gastroesophageal Reflux Psychological History: Depression - Surgical History Surgical History: Yes Surgery Procedure, Year, and Place: C SECTION. KNEE SURGERY - Family History Known Family History: Positive: Cardiac Disease - cardiac myopathy, [place], CHF ( mother, grandmother) - Social History Alcohol Use: Rare Alcohol Amount: 1 month Substance Use Type: None Substance Use Comment - Amount & Last Used: Trazadone Smoking Status (MU): Never Smoked Tobacco Have You Smoked in the Last Year: No Review of Systems All Other Systems Reviewed And Are Negative: Yes Constitutional: Positive: Other - see hpi Skin: Positive: Negative Eyes: Positive: Negative ENT: Positive: Sore Throat, Nasal Discharge Respiratory: Positive: Shortness Of Breath - see hpi, Cough Cardiovascular: Positive: Negative Gastrointestinal: Positive: Negative Motor: Positive: Negative Neurovascular: Positive: Negative Musculoskeletal: Positive: Myalgia Neurological/Mental Status: Positive: Negative Psychological: Positive: Negative Is Patient Immunocompromised?: No Physical Exam Triage Information Reviewed: Yes Appearance: Well-Appearing, No Pain Distress, Well-Nourished Vital Signs: Initial Vital Signs Temp 96.4 F 12/23/19 13:38 Pulse 80 12/23/19 13:38 Resp 16 12/23/19 13:38 BP 135/53 12/23/19 13:38 Pulse Ox 100 12/23/19 13:38 Vital Signs Reviewed: Yes Eye Exam: Normal Eyes: Positive: Conjunctiva Clear ENT: Positive: Pharynx normal, Nasal drainage Neck: Positive: Supple Cardiovascular: Positive: RRR Musculoskeletal: Positive: Strength Intact, ROM Intact Neurological: Positive: Alert, Muscle Tone Normal Psychological: Positive: Age Appropriate Behavior Skin Exam: Normal Respiratory Course/Dx - Course Course Of Treatment: Health Information Technologist: Katrin Dozier S, ([id number]) Credit Card Control Clerk: DANDRE (TRENTANCE) Report Date: 12/23/2019 15:23:00 Report Status: Final Start of Report Content Patient Name: ITZ DAMIAN Medical Record#: [id number] Ordering Physician: Pedro Pablo Tse MD Acct.#: [id number] : 1970 Age : 49 Sex: F Location: [facility] Exam Date: 12/23/19 1445 ADM Status: REG ER Order Information: CHEST PA LAT 2 VWS Accession Number: [id number] CPT: 69300 Indication: Shortness of breath, cough. 2 views of the chest and straight no mediastinal shift. Heart is of normal size and configuration. Lung fermin appear clear. IMPRESSION: No active cardiopulmonary disease is noted. < Electronically signed by Katrin Dozier MD in OV> 12/23/191517 Dictated By: Katrin Dozier MD Dictated Date/Time: 12/23/191515 Transcribed Date/Time: 12/23/191515 Copy to: CC:Dennis Malagon MD; Pedro Pablo Tse MD Imaging - [facility] Imaging - [facility] Imaging - [facility] [id number] [place] [id number] [place] [id number] ph [phone]) ph ([phone]) ph ([phone]) End of Report Content I discussed the x-ray report with the patient. Strep and flu were negative. When the nasopharyngeal flu swab was obtained, patient reports that when she had her Covid testing on December 20, 2019 the used to swab just at the opening of her nostrils and she wondered if they got a good sample or not and she expressed concern about the possibility of a false negative result of her Covid testing from December 20, 2019. We discussed retesting here with our nasopharyngeal swab. The patient would like to be retested. Covid 19 nasopharyngeal swab was obtained. Patient will be in self isolation. With the patient having bronchitis symptoms of being ill for greater than 10 days we discussed viral versus bacterial infections and the risk of the symptoms turning into a bacterial infection with greater than 10 days of symptoms. We'll start the patient on azithromycin. Patient follow-up primary care doctor she'll get reevaluated sooner if worse or any questions or concerns. - Differential Dx/Diagnosis Provider Diagnosis: Bronchitis Discharge ED - Sign-Out/Discharge Documenting (check all that apply): Patient Departure All imaging exams completed and their final reports reviewed: No Studies - Discharge Plan Condition: Stable Disposition: HOME Prescriptions: Azithromyxin ADOLPH (NF) [Z-Adolph (Zithromax) 250 mg tabs #6] 2 tab PO .TODAY, THEN 1 DAILY #6 tab Patient Education Materials: Acute Bronchitis (ED) Forms: COVID-19 Tested & Isolation Referrals: Dennis Malagon MD [Primary Care Provider] - Additional Instructions: PLACE YOURSELF IN HOME ISOLATION. THE [facility] DEPART[facility] WILL CONTACT YOU. CONTACT THEM TOMORROW IF YOU HAVE NOT HEARD FROM THEM. FOLLOW UP WITH YOUR DOCTOR IF NOT COMPLETELY IMPROVED. GO TO THE EMERGENCY DEPARTMENT IF NOT IMPROVED OR WORSE OR ANY QUESTIONS OR CONCERNS. - Billing Disposition and Condition Condition: STABLE Disposition: Home
--- NOTE | 2019-12-23 18:32 | UC ---
Course/Dx - Diagnoses Provider Diagnoses: Bronchitis Discharge ED - Sign-Out/Discharge Documenting (check all that apply): Patient Departure All imaging exams completed and their final reports reviewed: Yes - Discharge Plan Condition: Stable Disposition: HOME Prescriptions: Azithromyxin WILVER (NF) [Z-Wilver (Zithromax) 250 mg tabs #6] 2 tab PO .TODAY, THEN 1 DAILY #6 tab Patient Education Materials: Acute Bronchitis (ED) Forms: COVID-19 Tested & Isolation Referrals: Dennis Malagon MD [Primary Care Provider] - Additional Instructions: PLACE YOURSELF IN HOME ISOLATION. [facility] CONTACT YOU. CONTACT THEM TOMORROW IF YOU HAVE NOT HEARD FROM THEM. FOLLOW UP WITH YOUR DOCTOR IF NOT COMPLETELY IMPROVED. GO TO THE EMERGENCY DEPARTMENT IF NOT IMPROVED OR WORSE OR ANY QUESTIONS OR CONCERNS. - Billing Disposition and Condition Condition: STABLE Disposition: Home
== END 2019-12-23 16:20 | disposition home or self-care (01) ==
LOC: UCEAST 13:33
DX: J40 Bronchitis, not specified as acute or chronic (principal); Z20.828 Contact with and (suspected) exposure to other viral communicable diseases; M06.9 Rheumatoid arthritis, unspecified; K21.9 Gastro-esophageal reflux disease without esophagitis; F32.9 Major depressive disorder, single episode, unspecified; Z88.6 Allergy status to analgesic agent; Z88.5 Allergy status to narcotic agent; Z88.8 Allergy status to other drugs, medicaments and biological substances; Z79.899 Other long term (current) drug therapy
CPT/HCPCS: 71046; 87635; 87651; 99211; G0463

== ENCOUNTER 2023-03-19 12:18 | Inpatient (IN) ==
[2023-03-19 12:48] LABS: ABS Eosinophils 0.2 10^3/uL (0.0-0.5); ABS Lymphocytes 1.9 10^3/uL (1.0-4.8); ABS Monocytes 0.5 10^3/uL (0.0-0.9); ABS Neutrophils 4.7 10^3/uL (1.5-7.6); Eosinophil % 2.2 %; Hematocrit 40.7 % (35-45); Hemoglobin 13.5 g/dL (11.5-14.3); Lymphocyte % 25.7 %; Mean Corpuscular Hemoglobin 29.6 pg (27-33); Mean Corpuscular Hgb Conc 33.2 g/dL (31-36); Mean Corpuscular Volume 89.1 fL (80-97); Mean Platelet Volume 7.8 fL (7.5-11.2); Platelet Count 234 10^3/uL (150-450); Red Blood Count 4.57 10^6/uL (3.63-4.92); White Blood Count 7.2 10^3/uL (3.8-11.8)
[2023-03-19 13:04] LABS: INR 0.97 (0.88-1.18)
[2023-03-19 13:10] LABS: Albumin/Globulin Ratio 1.3 (1-3); Calcium 9.1 mg/dL (8.6-10.3); Creatinine, Serum 0.76 mg/dL (0.51-0.95); Globulin 3.1 g/dL (2-4); Potassium 4.2 mmol/L (3.5-5.0); Total Bilirubin 0.4 mg/dL (0.2-1.0); Total Protein 7.1 g/dL (6.4-8.9); eGFR CKD-EPI 95.4 (>60)
[2023-03-19] MEDS ORDERED: Iohexol 350 (CONTRAST) 500 ML MDV IV ONE (13:21)
[2023-03-19 14:04] LABS: High Sensitivity Troponin 1 Hr 149 pg/mL (<15)
[2023-03-19] MEDS ORDERED: Enoxaparin 100 MG/ML SYR SUBCUT ONE (14:31)
[2023-03-19] MEDS ORDERED: Heparin DRIP 25,000 UNITS BAG 25,000 UNITS/500 ML BAG IV SCH (15:15)
[2023-03-19] MEDS ORDERED: Heparin 5000 UNITS/ML 1 mL VIAL IV SCH (16:00)
[2023-03-19 16:08] LABS: PCO2 Arterial 32 mmHg (35-45); PO2 Arterial 84 mmHg (80-100)
[2023-03-19] MEDS ORDERED: ACETAMINOPHEN CODEINE PO PRN (16:24)
[2023-03-19] MEDS ORDERED: NS 0.9% 1000 ml BAG 1,000 ML IV.FLUID IV ONE (17:00)
[2023-03-19 22:10] LABS: Hematocrit 33.6 % (35-45); Hemoglobin 11.3 g/dL (11.5-14.3); Mean Corpuscular Hemoglobin 29.9 pg (27-33); Mean Corpuscular Hgb Conc 33.5 g/dL (31-36); Mean Corpuscular Volume 89.2 fL (80-97); Mean Platelet Volume 7.4 fL (7.5-11.2); Platelet Count 189 10^3/uL (150-450); Red Blood Count 3.77 10^6/uL (3.63-4.92); Red Cell Distribution Width 13.8 % (12-17); White Blood Count 7.6 10^3/uL (3.8-11.8)
[2023-03-20 04:18] LABS: ABS Eosinophils 0.1 10^3/uL (0.0-0.5); ABS Monocytes 0.7 10^3/uL (0.0-0.9); ABS Neutrophils 5.3 10^3/uL (1.5-7.6); ABS Nucleated RBC 0.01 10^3/ul; Eosinophil % 0.9 %; Hematocrit 33.3 % (35-45); Hemoglobin 11.2 g/dL (11.5-14.3); Lymphocyte % 24.3 %; Mean Corpuscular Hemoglobin 29.8 pg (27-33); Mean Corpuscular Hgb Conc 33.5 g/dL (31-36); Mean Corpuscular Volume 88.7 fL (80-97); Mean Platelet Volume 7.5 fL (7.5-11.2); Nucleated Red Blood Cells % 0.1 /100 WBC (0.0-0.4); Platelet Count 187 10^3/uL (150-450); Red Blood Count 3.76 10^6/uL (3.63-4.92); Red Cell Distribution Width 13.8 % (12-17); White Blood Count 8.1 10^3/uL (3.8-11.8)
[2023-03-20 04:33] LABS: Calcium 8.3 mg/dL (8.6-10.3); Creatinine, Serum 0.74 mg/dL (0.51-0.95); Potassium 4.1 mmol/L (3.5-5.0); eGFR CKD-EPI 98.5 (>60)
[2023-03-20 08:34] VITALS: BP 98/67
[2023-03-20] MEDS ORDERED: Albumin Human 5% 12.5 GM/250 ML BTL IV ONE (08:48)
[2023-03-20] MEDS ORDERED: Norepinephrine 16MCG/ML BAGD5W 4,000 MCG/250 ML BAG IV ONE (08:50)
[2023-03-20] MEDS ORDERED: Rocuronium 50 mg VIAL 10 mg/ml 5 ml VIAL (50 mg) ONE ×2 (08:50→08:55)
[2023-03-20] MEDS ORDERED: Succinylcholine 200 mg VIAL 20 mg/ml 10 ml VIAL (200 mg) ONE ×2 (08:50→08:55)
[2023-03-20] MEDS ORDERED: Atropine 0.1 MG/ML 10 ml SYR (1 mg) ONE (08:55)
[2023-03-20] MEDS ORDERED: Etomidate 40 mg/20 ml (2 MG/ML) 20 ml VIAL (40 mg) ONE (08:55)
[2023-03-20] MEDS ORDERED: fentaNYL 250 mcg/5 ml 50 MCG/ML 5 ml VIAL (250 MCG) ONE (08:55)
[2023-03-20] MEDS ORDERED: TENECTEPLASE 50 MG VIAL KIT 5 MG/ML (reconstituted) IV ONE (09:17)
[2023-03-20] MEDS ORDERED: Albumin Human 25% 0 GM/0 ML BTL IV ONE (09:26)
[2023-03-20] MEDS ORDERED: EPINEPHRINE 1 MG/ML 4 MG in D5W 1000 ML BAG 996 ML IV SCH (09:45)
[2023-03-20] MEDS ORDERED: Sodium Bicarbonate 8.4% SYR 50 ml SYRINGE ONE (09:57)
[2023-03-20] MEDS ORDERED: EPINEPHrine SYR 0.1MG/ML 10 ml SYRINGE IV ONE (09:57)
[2023-03-20] MEDS ORDERED: DOBUTAMINE ONE (09:57)
[2023-03-20 10:02] LABS: ABS Eosinophils 0.1 10^3/uL (0.0-0.5); ABS Lymphocytes 3.9 10^3/uL (1.0-4.8); ABS Neutrophils 6.5 10^3/uL (1.5-7.6); ABS Nucleated RBC 0.02 10^3/ul; Eosinophil % 0.8 %; Hematocrit 36.9 % (35-45); Hemoglobin 12.1 g/dL (11.5-14.3); Mean Corpuscular Hemoglobin 29.1 pg (27-33); Mean Corpuscular Hgb Conc 32.7 g/dL (31-36); Mean Platelet Volume 8.4 fL (7.5-11.2); Nucleated Red Blood Cells % 0.2 /100 WBC (0.0-0.4); Platelet Count 183 10^3/uL (150-450); Red Blood Count 4.15 10^6/uL (3.63-4.92); Red Cell Distribution Width 14.1 % (12-17); White Blood Count 11.4 10^3/uL (3.8-11.8)
[2023-03-20 10:19] LABS: Albumin 3.3 g/dL (3.2-5.2); Albumin/Globulin Ratio 1.4 (1-3); Calcium 8.5 mg/dL (8.6-10.3); Creatinine, Serum 0.76 mg/dL (0.51-0.95); Globulin 2.3 g/dL (2-4); Potassium 4.2 mmol/L (3.5-5.0); Total Bilirubin 0.3 mg/dL (0.2-1.0); Total Protein 5.6 g/dL (6.4-8.9); eGFR CKD-EPI 95.4 (>60)
[2023-03-20] MEDS ORDERED: Norepinephrine 16MCG/ML BAGD5W 4,000 MCG/250 ML BAG IV SCH (16:00)
== END 2023-03-20 10:03 | disposition expired | DRG 134 ==
LOC: ED 12:18 → EDHOLD 16:17 → ICU 18:01
PROVIDERS: ADMIT Internal Medicine Critical Care Medicine; ATTEND Internal Medicine Critical Care Medicine